=== PATIENT | male | born 1995 | race Caucasian/White ===

== ENCOUNTER 2017-10-26 14:10 | Emergency (ER) | payer MEDICARE, OTHER ==
[~2017-10-26] VITALS: Ht 175.3 cm; Wt 72.6 kg
--- OUTSIDE RECORDS SUMMARY | ~2017-10-26 | XMS | Clinical Summary ---
Demographics + + + | Address | [address] | | | [place] [address] | + + + | Home Phone | | + + + | Preferred Language | Unknown | + + + | Marital Status | Single | + + + | Anabaptist Affiliation | Unknown | + + + [...] Team Providers + +------+ + | Care Salon Coordinator Name | Role | Phone | + +------+ + PP | Unavailable | + +------+ + Source Comments LAVONNE is fully live on both [facility] Ambulatory and EpicCare InPatient.[facility] Allergies Not on File Current [...]
--- OUTSIDE RECORDS SUMMARY | ~2017-10-26 | XMS | Clinical Summary ---
Demographics + + + | Address | [address] | | | [place] [address] | + + + | Home Phone | | + + + | Preferred Language | Unknown | + + + | Marital Status | Single | + + + | Advent Affiliation | Unknown | + + + [...] Team Providers + +------+ + | Care Seo Professional Name | Role | Phone | + +------+ + PP | Unavailable | + +------+ + Source Comments LAVONNE is fully live on both [facility] Ambulatory and EpicCare InPatient.[facility] Allergies Not on File Current [...]
[~2017-10-26 14:10] MED LIST: TRIAMCINOLONE A15 GM TOP
[2017-10-26] MEDS ORDERED: NAPROSYN500 MG PO (14:31)
--- NOTE | 2017-10-27 00:07 | EKG ---
[facility] [address] [facility] [place] [address] Signed Normal sinus rhythm Nonspecific T wave abnormality Abnormal ECG No previous ECGs available Confirmed by MILO DAMICO MD ([id number]) on 10/27/2017 12:07:19 AM Electronically Signed By: MILO DAMICO MD 10/27/17 0007 PATIENT NAME: RICHARD FULLER HERBERT Electrocardiogram DATE OF : [birth year] PHYSICIAN: MILO DAMICO MD REPORT #: [id number] REPORT IS CONFIDENTIAL AND NOT TO BE RELEASED WITHOUT AUTHORIZATION
== END 2017-10-26 16:21 | disposition home or self-care (01) ==
LOC: ED 14:10
DX: M94.0 Chondrocostal junction syndrome [Tietze] (principal); Z88.0 Allergy status to penicillin
CPT/HCPCS: 71045; 93005; 93010; 96372; 99283; J1885

== ENCOUNTER 2017-10-28 08:44 | Emergency (ER) | payer MEDICARE, OTHER ==
[~2017-10-28] VITALS: Ht 175.3 cm; Wt 72.1 kg
--- OUTSIDE RECORDS SUMMARY | ~2017-10-28 | XMS | Clinical Summary ---
Demographics + + + | Address | [address] | | | [place] [address] | + + + | Home Phone | | + + + | Preferred Language | Unknown | + + + | Marital Status | Single | + + + | Yazidism Affiliation | Unknown | + + + [...] Team Providers + +------+ + | Care Cdl Bulk Driver Name | Role | Phone | + +------+ + PP | Unavailable | + +------+ + Source Comments LAVONNE is fully live on both Epic[facility] Ambulatory and EpicCare InPatient.[facility] Allergies Not on File Current Medications [...]
--- OUTSIDE RECORDS SUMMARY | ~2017-10-28 | XMS | Clinical Summary ---
Demographics + + + | Address | [address] | | | [place] [address] | + + + | Home Phone | | + + + | Preferred Language | Unknown | + + + | Marital Status | Single | + + + | Lutheran Affiliation | Unknown | + + + [...] Team Providers + +------+ + | Care Celebrity Manager Name | Role | Phone | + +------+ + PP | Unavailable | + +------+ + Source Comments LAVONNE is fully live on both Epic[facility] Ambulatory and EpicCare InPatient.[facility] Allergies Not on File [...]
[~2017-10-28 08:44] MED LIST changes: +NAPROSYN500 MG PO
[2017-10-28] MEDS ORDERED: VOLTAREN100 GM TOP (09:10)
== END 2017-10-28 09:50 | disposition home or self-care (01) ==
LOC: ED 08:44
DX: M62.830 Muscle spasm of back (principal); J45.909 Unspecified asthma, uncomplicated; Z88.0 Allergy status to penicillin; Z79.899 Other long term (current) drug therapy
CPT/HCPCS: 96372; 99283; J1885

== ENCOUNTER 2017-10-30 17:06 | Emergency (ER) | payer MEDICARE, OTHER ==
[~2017-10-30] VITALS: Ht 175.3 cm; Wt 72.1 kg
[~2017-10-30 17:06] MED LIST changes: +VOLTAREN100 GM TOP
--- OUTSIDE RECORDS SUMMARY | 2017-10-30 17:21 | XMS | Clinical Summary ---
Demographics + + + | Address | [address] | | | [place] [address] | + + + | Home Phone | | + + + | Preferred Language | Unknown | + + + | Marital Status | Single | + + + | Hoahaoism Affiliation | Unknown | + + + | Race | White | + + + | Ethnic Group | Not or | + + + Author + + + | Organization | Unknown | + + + | Address | Unknown | + + + | Phone | Unavailable | + + + Support +------+ + + + | Name | Relationship | Address | Phone | +------+ + + + ECON | [place] | | +------+ + + + Care Team Providers + +------+ + | Care Case Aide Name | Role | Phone | + +------+ + PP | Unavailable | + +------+ + Source Comments LAVONNE is fully live on both Epic[facility] Ambulatory and EpicCare InPatient.[facility] Allergies Not on File Current Medications Not on file Active Problems Not on file Social History + +-------+ +--------+------+ | Tobacco Use | Types | Packs/Day | Years | Date | | | | | Used | | + +-------+ +--------+------+ | Never Assessed | | | | | + +-------+ +--------+------+ + + + | Sex Assigned at | Date Recorded | | | | + + + | Not on file | | + + + Plan of Treatment + + + + + | Health Maintenance | Due Date | Last Done | Comments | + + + + + | INFLUENZA VACCINE | | | | | (FLU SHOT) | 7 | | | + + + + + Results Not on filefrom Last 3 Months"
--- OUTSIDE RECORDS SUMMARY | 2017-10-30 17:21 | XMS | Clinical Summary ---
Demographics + + + | Address | [address] | | | [place] [address] | + + + | Home Phone | | + + + | Preferred Language | Unknown | + + + | Marital Status | Single | + + + | Scientologist Affiliation | Unknown | + + + [...] Team Providers + +------+ + | Care Landscape Laborer Name | Role | Phone | + +------+ + PP | Unavailable | + +------+ + Source Comments LAVONNE is fully live on both Epic[facility] Ambulatory and EpicCare InPatient.[facility] Allergies Not on File Current Medications Not [...]
[2017-10-30] MEDS ORDERED: ZITHROMAX250 MG PO (18:06)
== END 2017-10-30 18:15 | disposition home or self-care (01) ==
LOC: ED 17:06
DX: J02.9 Acute pharyngitis, unspecified (principal); Z91.038 Other insect allergy status; Z91.030 Bee allergy status; Z88.0 Allergy status to penicillin; Z79.899 Other long term (current) drug therapy
CPT/HCPCS: 87081; 87880; 99283

== ENCOUNTER → 2018-01-27 | Emergency (ER) | payer MEDICARE, OTHER ==
[~2018-01-27] VITALS: Ht 175.3 cm; Wt 79.4 kg
[~2018-01-27] MED LIST changes: +ZITHROMAX250 MG PO
== END ==
LOC: ED 21:14
DX: S46.812A Strain of other muscles, fascia and tendons at shoulder and upper arm level, left arm, initial encounter (principal); X58.XXXA Exposure to other specified factors, initial encounter; Z91.030 Bee allergy status; Z88.0 Allergy status to penicillin
CPT/HCPCS: 73080; 99283

== ENCOUNTER 2018-05-25 18:10 | Emergency (ER) | payer MEDICARE, OTHER ==
[~2018-05-25] VITALS: Ht 175.3 cm; Wt 79.4 kg
--- OUTSIDE RECORDS SUMMARY | ~2018-05-25 | XMS | Clinical Summary ---
Demographics + + + | Address | [address] | | | [place] [address] | + + + | Home Phone [...] | + + + + + | CHANNING FULLER | ECON | [place] | | + + + + + Care Team Providers + +------+ + | Care Medical Records Auditor Name | Role | Phone | + +------+ + PP | Unavailable | + +------+ + Source Comments LAVONNE is fully live on both [facility] Ambulatory and [facility] InPatient.[facility] Allergies Not on File Current [...] | | | | (FLU SHOT) | 8 | | | + + + + + Results Not on filefrom Last 3 Months"
--- OUTSIDE RECORDS SUMMARY | ~2018-05-25 | XMS | Clinical Summary ---
Demographics + + + | Address | [address] | | | [place] [address] | + + + | Home Phone | | + + + | Preferred Language | Unknown | + + + | Marital Status | Single | + + + | Uatsdin Affiliation | Unknown | + + + [...] Team Providers + +------+ + | Care Jet Ski Mechanic Name | Role | Phone | + +------+ + PP | Unavailable | + +------+ + Source Comments LAVONNE is fully live on both [facility] Ambulatory and [facility] InPatient.[facility] Allergies Not on File Current [...]
--- OUTSIDE RECORDS SUMMARY | 2018-05-25 18:14 | XMS ---
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 Security Bulldozer Mechanic Events No recent Security Events currently on file CRITERIA MET - [facility] - 2 Visits in 30 Days CARE PROVIDERS Dr Butt Primary Care Current PHONE: [phone] [place] has no Care Guidelines for this patient. E.DAliya VISIT COUNT (12 MO.) [address] [place] [address] TOTAL 6 NOTE: Visits indicate total known visits. ED/UCC VISIT TRACKING (12 MO.) 05/25/2018 18:11 [facility] [place] TYPE: Emergency COMPLAINT: - HEAD PRESSURE/NOSE BLEED 05/24/2018 22:37 [facility] [place] TYPE: Emergency COMPLAINT: - NOSE BLEEDS 2018 21:14 [facility] [place] TYPE: Emergency COMPLAINT: - LT ELBOW PAIN DIAGNOSES: - Exposure to other specified factors, initial encounter - Strain of other muscles, fascia and tendons at shoulder and upper arm level, left arm, initial encounter - Bee allergy status - Allergy status to penicillin 10/30/2017 17:07 [facility] [place] TYPE: Emergency COMPLAINT: - SORE THROAT/PROBLEMS SWALLOWING DIAGNOSES: - Bee allergy status - Other insect allergy status - Allergy status to penicillin - Other termite treater (current) drug therapy - Acute pharyngitis, unspecified 10/28/2017 08:46 [facility] [place] TYPE: Emergency COMPLAINT: - HEAD PAIN DIAGNOSES: - Muscle spasm of back - Allergy status to penicillin - Headache - Other termite treater (current) drug therapy - Unspecified asthma, uncomplicated 10/26/2017 14:10 [facility] [place] TYPE: Emergency COMPLAINT: - CHEST PAIN DIAGNOSES: - Palpitations - Chondrocostal junction syndrome [Tietze] - Allergy status to penicillin INPATIENT VISIT TRACKING (12 MO.) No inpatient visits to display in this time frame [email or web address]
== END 2018-05-25 21:19 | disposition home or self-care (01) ==
LOC: ED 18:10
DX: R51 Headache (principal); R04.0 Epistaxis; Z91.038 Other insect allergy status; Z91.030 Bee allergy status; Z88.0 Allergy status to penicillin
CPT/HCPCS: 70450; 80053; 85025; 85610; 85730; 99284

== ENCOUNTER 2018-09-26 13:08 | Emergency (ER) | payer MEDICARE, OTHER ==
[~2018-09-26] VITALS: Ht 175.3 cm; Wt 79.8 kg
[2018-09-26] MEDS ORDERED: IBUPROFEN600 MG PO (16:19)
[2018-09-26] MEDS ORDERED: NORCO 5-325 TA1 EACH PO (16:19)
== END 2018-09-26 16:32 | disposition home or self-care (01) ==
LOC: ED 13:08
DX: S36.892A Contusion of other intra-abdominal organs, initial encounter (principal); Z91.038 Other insect allergy status; Z88.0 Allergy status to penicillin; X58.XXXA Exposure to other specified factors, initial encounter; Y93.39 Activity, other involving climbing, rappelling and jumping off
CPT/HCPCS: 74177; 80053; 81001; 85025; 99284-25; J1885; Q9967

== ENCOUNTER 2018-10-27 19:11 | Emergency (ER) | payer MEDICARE, OTHER ==
[~2018-10-27] VITALS: Ht 175.3 cm; Wt 79.8 kg
[~2018-10-27 19:11] MED LIST changes: +IBUPROFEN600 MG PO; +NORCO 5-325 TA1 EACH PO
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
== END 2018-10-27 19:49 | disposition home or self-care (01) ==
LOC: ED 19:11
DX: S91.111A Laceration without foreign body of right great toe without damage to nail, initial encounter (principal); W22.8XXA Striking against or struck by other objects, initial encounter; Z91.030 Bee allergy status; Z88.0 Allergy status to penicillin
CPT/HCPCS: 90471; 90715; 99282-25

== ENCOUNTER 2018-10-28 19:21 | Emergency (ER) | payer MEDICARE, OTHER ==
[~2018-10-28] VITALS: Ht 175.3 cm; Wt 80.3 kg
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
== END 2018-10-28 22:48 | disposition home or self-care (01) ==
LOC: ED 19:21
PROC: 2W3DX1Z Immobilization of Left Lower Arm using Splint (ICD-10-PCS; principal; 2018-10-28)
DX: S63.502A Unspecified sprain of left wrist, initial encounter (principal); Z91.038 Other insect allergy status; Z88.0 Allergy status to penicillin; W22.03XA Walked into furniture, initial encounter
CPT/HCPCS: 29125; 73110; 73130; 99283-25

== ENCOUNTER 2019-05-23 17:36 | Emergency (ER) | payer MEDICARE, OTHER ==
[~2019-05-23] VITALS: Ht 175.3 cm; Wt 80.3 kg
--- OUTSIDE RECORDS SUMMARY | 2019-05-23 17:38 | XMS ---
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 Security Showroom Sales Consultant Events No recent Security Events currently on file CRITERIA MET - [facility] - Has Care Guidelines [facility] MARIA TERESA [employer] PHONE: [phone] Dr Butt Primary Care Current PHONE: [phone] [place] has no Care Guidelines for this patient. Care History Medical/Surgical 05/26/2018 [facility] tried to contact patient. Patient phone does not have a voicemail set up. - Patient was last seen by PCP Dr Butt on November 30. - Please refer patient to PCP office for non emergent medical care. E.D. VISIT COUNT (12 MO.) 8 [facility] TOTAL 8 NOTE: Visits indicate total known visits. ED/UCC VISIT TRACKING (12 MO.) 05/23/2019 17:37 [facility] [place] TYPE: Emergency COMPLAINT: - NOSE BLEEDS 10/28/2018 19:22 [facility] [place] TYPE: Emergency COMPLAINT: - LEFT WRIST INJURY DIAGNOSES: - Allergy status to penicillin - Unspecified sprain of left wrist, initial encounter - Other insect allergy status - Walked into furniture, initial encounter - Pain in left wrist 10/27/2018 19:[address] [facility] [place] TYPE: Emergency COMPLAINT: - R BIG TOE SORE/INFECTION DIAGNOSES: - Bee allergy status - Allergy status to penicillin - Laceration without foreign body of right great toe without damage to nail, initial encounter - Striking against or struck by other objects, initial encounter 09/26/2018 13:09 [facility] Gilbertnick McnallyAliya [place] TYPE: Emergency COMPLAINT: - ABD PAIN DIAGNOSES: - Other insect allergy status - Contusion of other intra-abdominal organs, initial encounter - Exposure to other specified factors, initial encounter - Left lower quadrant pain - Allergy status to penicillin - Activity, other involving climbing, rappelling and jumping off 06/21/2018 21:16 [facility] Gilbertnick McnallyAliya [place] TYPE: [...] Scratched by cat, initial encounter 05/25/2018 18:11 [facility] [place] TYPE: Emergency COMPLAINT: - HEAD PRESSURE/NOSE BLEED DIAGNOSES: - Headache - Other insect allergy status - Bee allergy status - Allergy status to penicillin - Epistaxis 05/24/2018 22:37 [facility] [place] TYPE: Emergency COMPLAINT: - NOSE BLEEDS DIAGNOSES: - Other insect allergy status - Bee allergy status - Epistaxis - Allergy status to penicillin INPATIENT VISIT TRACKING (12 MO.) No inpatient visits to display in this time frame [id number]
== END 2019-05-23 21:52 | disposition home or self-care (01) ==
LOC: ED 17:36
PROC: 093K7ZZ Control Bleeding in Nasal Mucosa and Soft Tissue, Via Natural or Artificial Opening (ICD-10-PCS; principal; 2019-05-23)
DX: R04.0 Epistaxis (principal); Z91.030 Bee allergy status; Z88.0 Allergy status to penicillin
CPT/HCPCS: 30901; 99283-25

== ENCOUNTER 2019-05-26 14:04 | Emergency (ER) | payer MEDICARE, OTHER ==
[~2019-05-26] VITALS: Ht 175.3 cm; Wt 80.3 kg
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
== END 2019-05-26 15:45 | disposition home or self-care (01) ==
LOC: ED 14:04
DX: R04.0 Epistaxis (principal); Z88.0 Allergy status to penicillin; Z91.030 Bee allergy status
CPT/HCPCS: 99283

== ENCOUNTER 2019-06-02 02:24 | Emergency (ER) | payer MEDICARE, OTHER ==
[~2019-06-02] VITALS: Ht 175.3 cm; Wt 80.3 kg
--- OUTSIDE RECORDS SUMMARY | 2019-06-02 02:30 | XMS ---
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 Security Double Cut Sawyer Events No recent Security Events currently on file CRITERIA MET - [facility] - Has Care Guidelines - [facility] - 2 Visits in 30 Days [facility]Eliseo [place] PHONE: [phone] Dr Butt Primary Care Current PHONE: [phone] [place] has no Care Guidelines for this patient. Care History Medical/Surgical 05/26/2018 [facility] tried to contact patient. Patient phone does not have a voicemail set up. - Patient was last seen by PCP Dr Butt on November 30. - Please refer patient to PCP office for non emergent medical care. E.D. VISIT COUNT (12 MO.) 8 [facility] TOTAL 8 NOTE: Visits indicate total known visits. ED/UCC VISIT TRACKING (12 MO.) 06/02/2019 02:24 [facility] [place] TYPE: Emergency COMPLAINT: - FLANK PAIN 05/26/2019 14:04 [facility] [place] TYPE: Emergency COMPLAINT: - NOSE BLEEDS DIAGNOSES: - Allergy status to penicillin - Bee allergy status - Epistaxis 05/23/2019 17:37 [facility] [place] TYPE: [...] by other objects, initial encounter 09/26/2018 13:09 [facility] [place] TYPE: Emergency COMPLAINT: - ABD PAIN [...] visits to display in this time frame [email or web address]
[2019-06-02] MEDS ORDERED: CYCLOBENZAPRINE10 MG PO (03:25)
[2019-06-02] MEDS ORDERED: NAPROXEN500 MG PO (03:25)
== END 2019-06-02 03:37 | disposition home or self-care (01) ==
LOC: ED 02:24
DX: R10.9 Unspecified abdominal pain (principal); Z88.0 Allergy status to penicillin; Z91.030 Bee allergy status
CPT/HCPCS: 81001; 99284

== ENCOUNTER 2019-07-18 04:19 | Emergency (ER) | payer MEDICARE, OTHER ==
[~2019-07-18] VITALS: Ht 175.3 cm; Wt 80.3 kg
--- OUTSIDE RECORDS SUMMARY | ~2019-07-18 | XMS | Clinical Summary ---
Demographics + + + | Address | [address] | | | [place] [address] | + + + | Home Phone | | + + + | Preferred Language | Unknown | + + + | Marital Status | Single | + + + | Confucianism Affiliation | Unknown | + + + [...] + + + + + | Madhuri López | SAD[place] | [place] | | + + + + + Care Team Providers + +------+ + | Care Infectious Diseases Physician Name | Role | Phone | + +------+ + PCP | Unavailable | + +------+ + Source Comments LAVONNE is fully live on both [facility] Ambulatory and [facility] InPatient.[facility] Allergies Not on File Medications Not on file Active Problems Not [...] recent travel history available. | + + Last Filed Vital Signs Not on file Plan of Treatment + + + + + | Health Maintenance | Due Date | Last Done | Comments | + + + + + | Influenza (Flu) | | | | | vaccination (#1) | 9 | | | + + + + + | Pneumococcal | Aged Out | | No longer eligible | | vaccination | | | based on patient's | | | | | age to complete this | | | | | topic | + + + + + Results Not on filefrom Last 3 Months"
--- OUTSIDE RECORDS SUMMARY | ~2019-07-18 | XMS | Clinical Summary ---
Demographics + + + | Address | [address] | | | [place] [address] | + + + | Home Phone | | + + + | Preferred Language | Unknown | + + + | Marital Status | Single | + + + | Episcopalian Affiliation | Unknown | + + + [...] Team Providers + +------+ + | Care Air Brakes Inspector Name | Role | Phone | + +------+ + PCP | Unavailable | + +------+ + Source Comments LAVONNE is fully live on both [facility] and [facility] InPatient.[facility] Allergies Not on File Medications Not [...]
--- OUTSIDE RECORDS SUMMARY | ~2019-07-18 | XMS | Encounter Summary ---
Demographics + + + | Address | [address] | | | [place] [address] | + + + | Home Phone | | + + + | Preferred Language | Unknown | + + + | Marital Status | Single | + + + | Evangelical Affiliation | Unknown | + + + [...] Team Providers + +------+ + | Care Business Manager College Or University Name | Role | Phone | + [...] as of this encounter Progress Notes Interface, Offset Press Operator Apprentice In - 08/05/2006 1:01 AM [place] [facility]als [facility] Clinics [facility] [address] [place], [place] [address] or January 29, 2000 Jonah Del Rio [address] [place] [address] RE: RICHARD FULLER MR #: [id number] Dear Dr. Del Rio: Thank you for the referral of your patient Richard Fuller to the Pediatric Dermatology Clinic at [facility]. He was seen by Dr. Carolyn Mckeon [...] patient to the Pediatric Dermatology Clinic at [facility]. If you have any questions or concerns, please do not hesitate to contact us at [phone]. Sincerely, Livia Prince M.D. Resident, Dermatology Carolyn Mckeon M.D. Pulling Machine Operator, Pediatrics and Dermatology NILAY / [id number] / [id number] / [id number] / [id number] cc: Yann Jansen M.D. [address] [place] [address] [id number] signed by Interface, Offset Press Operator Apprentice In at 08/05/2006 1:01 AM PSTdocume nted in this encounter Plan of Treatment Not on filedocumented as of this encounter Visit Diagnoses Not on filedocumented in this encounter"
--- OUTSIDE RECORDS SUMMARY | ~2019-07-18 | XMS | Encounter Summary ---
Demographics + + + | Address | [address] | | | [place] [address] | + + + | Home Phone [...] Team Providers + +------+ + | Care Pillowcase Sewer Name | Role | Phone | + [...] as of this encounter Progress Notes Interface, Circus Artist In - 08/05/2006 1:01 AM [place] [facility] Hospitals and Clinics [facility] [address] [place], [place] [address] or January 29, 2000 Jonah Del Rio [address] [place] [address] RE: RICHARD FULLER MR #: [id number] Dear Dr. Del Rio: Thank you for the referral of your patient Richard Fuller to the Pediatric Dermatology Clinic at [facility]. He was seen by Dr. Carolyn Mckeon [...] patient to the Pediatric Dermatology Clinic at [facility]. If you have any questions or concerns, please do not hesitate to contact us at [phone]. Sincerely, Livia Prince M.D. Resident, Dermatology Carolyn Mckeon M.D. Director On Air, Pediatrics and Dermatology NILAY / [id number] / [id number] / [id number] / [id number] cc: Yann Jansen M.D. [address] [place] [address] [id number] signed by Interface, Circus Artist In at 08/05/2006 1:01 AM PSTdocume nted in this encounter Plan of Treatment Not on filedocumented as of this encounter Visit Diagnoses Not on filedocumented in this encounter"
[~2019-07-18 04:19] MED LIST changes: +CYCLOBENZAPRINE10 MG PO; +NAPROXEN500 MG PO
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
--- NOTE | 2019-07-18 17:40 | EKG ---
[facility] [address] [facility] [place], [place] [address] Signed Normal sinus rhythm Normal ECG When compared with ECG of 26-OCT-2017 14:19, No significant change was found Confirmed by ZAY KAM DO ([id number]) on 07/18/2019 5:39:42 PM Electronically Signed By: ZAY KAM DO 07/18/19 1740 PATIENT NAME: SHANE FULLERDali GODINEZ Electrocardiogram DATE OF : [birth year] PHYSICIAN: ZAY KAM DO REPORT #: [id number] REPORT IS CONFIDENTIAL AND NOT TO BE RELEASED WITHOUT AUTHORIZATION
== END 2019-07-18 05:30 | disposition home or self-care (01) ==
LOC: ED 04:19
DX: R07.89 Other chest pain (principal); Z91.030 Bee allergy status; Z88.0 Allergy status to penicillin
CPT/HCPCS: 71045; 80053; 83735; 84484; 85025; 93005; 93010; 99285-25

== ENCOUNTER 2019-08-09 23:26 | Emergency (ER) | payer MEDICARE, OTHER ==
[~2019-08-09] VITALS: Ht 175.3 cm; Wt 80.3 kg
--- OUTSIDE RECORDS SUMMARY | ~2019-08-09 | XMS | Encounter Summary ---
Demographics + + + | Address | [address] | | | [place] [address] | + + + | Home Phone | | + + + | Preferred Language | Unknown | + + + | Marital Status | Single | + + + | Orthodoxy Affiliation | Unknown | + + + | Race | White | + + + | Ethnic Group | Not or | + + + Author + + + | Organization | Unknown | + + + | Address | Unknown | + + + | Phone | Unavailable | + + + Support + + + + + | Name | Relationship | Address | Phone | + + + + + | Madhuri Fuller | SADIE | [place] | | + + + + + Care Team Providers + +------+ + | Care Vocal Music Teacher Name | Role | Phone | + +------+ + PCP | Unavailable | + +------+ + Encounter Details +--------+ + + + + | Date | Type | Department | Care Team | Description | +--------+ + + + + | 01/28/ | Transcribed | | Dictation, Other | Transcribed | | 2000 | | | | | +--------+ + + + + Social History + +-------+ +--------+------+ | Tobacco [...] on file | | + + + + + + + | Job Start Date | Occupation | Industry | + + + + | Not on file | Not on file | Not on file | + + + + + + + + | Travel History | Travel Start | Travel End | + + + + + + | No recent travel history available. | + + documented as of this encounter Progress Notes Interface, Director Design In - 08/05/2006 1:01 AM [place]ARR[place] [facility] Hospitals and Clinics [facility] [address] [place], [place] [address] or January 29, 2000 Jonah Del Rio [address] [place] [address] RE: RICHARD FULLER MR #: [id number] Dear Dr. Del Rio: Thank you for the referral of your patient Richard Fuller to the Pediatric Dermatology Clinic at [facility]. He was seen by Dr. Carolyn Mckeon and myself on January 29, 2000. Richard is 5-year-old boy with a history of intermittent episodes of high fever, emesis, and flushing. These have occurred monthly since July 1999. He has had a negative Strep throat culture as well as blood cultures that were negative. He has no desquamation of his hands or feet. The rash has never been palpable, only deep red in color involving his face, upper chest, and extremities. He has received numerous courses of antibiotics with improvement in his course. He is otherwise healthy and does have recurrent otitis media. He currently takes a multivitamin. HE HAS ALLERGIES TO AMOXICILLIN AND CEPHALEXIN. He has no family history of psoriasis or eczema. On physical examination today, Richard's skin examination was completely normal. He had no evidence of any dermatitis. He had no lymphadenopathy. There was no hepatosplenomegaly. It is difficult at this point in time to determine the etiology of Richard's recurrent fevers, emesis, and flushing. Given the cyclic nature of these symptoms, we felt that it might be appropriate to refer the patient to Infectious Disease Clinic for further evaluation. We would be happy to see him back if his rash does return, and this maybetter help us to classify the rash at that time. Thank you once again for the referral of your patient to the Pediatric Dermatology Clinic at [facility]. If you have any questions or concerns, please do not hesitate to contact us at [phone]. Sincerely, Livia Prince M.D. Resident, Dermatology Carolyn Mckeon M.D. Pediatric Medical Assistant, Pediatrics and Dermatology NILAY / [id number] / [id number] / [id number] / [id number] cc: Yann Jansen M.D. [address] [place] [address] [id number] signed by Interface, Director Design In at 08/05/2006 1:01 AM PSTdocume nted in this encounter Plan of Treatment Not on filedocumented as of this encounter Visit Diagnoses Not on filedocumented in this encounter"
--- OUTSIDE RECORDS SUMMARY | ~2019-08-09 | XMS | Clinical Summary ---
Demographics + + + | Address | [address] | | | [place] [address] | + + + | Home Phone | | + + + | Preferred Language | Unknown | + + + | Marital Status | Single | + + + | Zoroastrian Affiliation | Unknown | + + + [...] Team Providers + +------+ + | Care Waste Salvager Name | Role | Phone | + +------+ + PCP | Unavailable | + +------+ + Source Comments LAVONNE is fully live on both [facility] Ambulatory and [facility] InPatient.[facility] Allergies Not on File Medications Not on [...]
--- OUTSIDE RECORDS SUMMARY | ~2019-08-09 | XMS | Encounter Summary ---
Demographics + + + | Address | [address] | | | [place] [address] | + + + | Home Phone | | + + + | Preferred Language | Unknown | + + + | Marital Status | Single | + + + | Religion Affiliation | Unknown | + + + [...] Team Providers + +------+ + | Care Collision Technician Name | Role | Phone | + [...] as of this encounter Progress Notes Interface, Pool Player In - 08/05/2006 1:01 AM [place] [facility] Hospitals and Clinics [facility] [address] [place], [place] [address] or January 29, 2000 Jonah Del Rio [address] [place] [address] RE: RICHARD FULLER MR #: [id number] Dear Dr. Del Rio: Thank you for [...] patient to the Pediatric Dermatology Clinic at [facility]. If you have any questions or concerns, please do not hesitate to contact us at [phone]. Sincerely, Livia Prinec M.D. Resident, Dermatology Carolyn Mckeon M.D. Bank Cashier, Pediatrics and Dermatology NILAY / [id number] / [id number] / [id number] / [id number] cc: Yann Jansen M.D. [address] [place] [address] [id number] signed by Interface, Pool Player In at 08/05/2006 1:01 AM PSTdocume nted in this encounter Plan of Treatment Not on filedocumented as of this encounter Visit Diagnoses Not on filedocumented in this encounter"
--- OUTSIDE RECORDS SUMMARY | ~2019-08-09 | XMS | Clinical Summary ---
Demographics + + + | Address | [address] | | | [place] [address] | + + + | Home Phone [...] Team Providers + +------+ + | Care Sampler Tester Name | Role | Phone | + +------+ + PCP | Unavailable | + +------+ + Source Comments LAVONNE is fully live on both [facility] Ambulatory and [facility] InPatient.[facility] Allergies Not on File Medications Not on [...]
--- OUTSIDE RECORDS SUMMARY | 2019-08-09 23:28 | XMS ---
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 Care History Medical/Surgical 05/26/2018 [facility] tried to contact patient. Patient phone does not have a voicemail set up. - Patient was last seen by PCP Dr Butt on November 30. - Please refer patient to PCP office for non emergent medical care. E.D. VISIT COUNT (12 MO.) [address] [facility] TOTAL 8 NOTE: Visits indicate total known visits. ED/UCC VISIT TRACKING (12 MO.) 08/09/2019 23:27 MARY ANNE Jiang [place] TYPE: Emergency COMPLAINT: - SORE THROAT 07/18/2019 04:19 MARY ANNE Jiang [place] TYPE: Emergency COMPLAINT: - CHEST PAIN DIAGNOSES: - Chest pain, unspecified - Other chest pain - Bee allergy status - Allergy status to penicillin 06/02/2019 02:24 MARY ANNE Jiang [place] TYPE: [...] visits to display in this time frame [id number]
== END 2019-08-09 23:58 | disposition home or self-care (01) ==
LOC: ED 23:26
DX: J06.9 Acute upper respiratory infection, unspecified (principal); Z91.030 Bee allergy status; Z88.0 Allergy status to penicillin
CPT/HCPCS: 99283

== ENCOUNTER 2019-08-23 18:18 | Emergency (ER) | payer MEDICARE, OTHER ==
[~2019-08-23] VITALS: Ht 175.3 cm; Wt 83.4 kg
--- OUTSIDE RECORDS SUMMARY | ~2019-08-23 | XMS | Encounter Summary ---
Demographics + + + | Address | [address] | | | [place] [address] | + + + | Home Phone | | + + + | Preferred Language | Unknown | + + + | Marital Status | Single | + + + | Yazidi Affiliation | Unknown | + + + [...] Team Providers + +------+ + | Care Emergency Services Professional Name | Role | Phone | + [...] as of this encounter Progress Notes Interface, Dry Placer Machine Operator In - 08/05/2006 1:01 AM [place] [facility] Hospitals and Clinics [facility] [address] [place], [place] [address] or January 29, 2000 Jonah Del Rio [address] [place] [address] RE: RICHARD FULLER MR #: [id number] Dear Dr. Del Rio: Thank you for the referral of your patient Richard Fuller to the Pediatric Dermatology Clinic at [facility]. He was seen by Dr. Carolyn Mckeon [...] patient to the Pediatric Dermatology Clinic at [facility]. If you have any questions or concerns, please do not hesitate to contact us at [phone]. Sincerely, Livia Prince M.D. Resident, Dermatology Carolyn Mckeon M.D. Integrated Campaign Manager, Pediatrics and Dermatology NILAY / [id number] / [id number] / [id number] / [id number] cc: Yann Jansen M.D. [address] [place] [address] [id number] signed by Interface, Dry Placer Machine Operator In at 08/05/2006 1:01 AM PSTdocume nted in this encounter Plan of Treatment Not on filedocumented as of this encounter Visit Diagnoses Not on filedocumented in this encounter"
--- OUTSIDE RECORDS SUMMARY | ~2019-08-23 | XMS | Encounter Summary ---
Demographics + + + | Address | [address] | | | [place] [address] | + + + | Home Phone | | + + + | Preferred Language | Unknown | + + + | Marital Status | Single | + + + | Zoroastrianism Affiliation | Unknown | + + + [...] Team Providers + +------+ + | Care Solar Panel Installer Name | Role | Phone | + [...] as of this encounter Progress Notes Interface, Rubber Mill Operator In - 08/05/2006 1:01 AM [place] [facility] Hospitals and Clinics [facility] [address] [place], [place] [address] or January 29, 2000 Jonah Del Rio [address] [place] [address] RE: RICHARD FULLER MR #: [id number] Dear Dr. Del Rio: Thank you for the referral of your patient Richard Fuller to the Pediatric Dermatology Clinic at [facility]. He was seen by Dr. [...] patient to the Pediatric Dermatology Clinic at [facility]. If you have any questions or concerns, please do not hesitate to contact us at [phone]. Sincerely, Livia Prince M.D. Resident, Dermatology Carolyn Mckeon M.D. Agricultural Produce Commission Agent, Pediatrics and Dermatology NILAY / [id number] / [id number] / [id number] / [id number] cc: Yann Jansen M.D. [address] [place] [address] [id number] signed by Interface, Rubber Mill Operator In at 08/05/2006 1:01 AM PSTdocume nted in this encounter Plan of Treatment Not on filedocumented as of this encounter Visit Diagnoses Not on filedocumented in this encounter"
--- OUTSIDE RECORDS SUMMARY | ~2019-08-23 | XMS | Clinical Summary ---
Demographics + + + | Address | [address] | | | [place] [address] | + + + | Home Phone | | + + + | Preferred Language | Unknown | + + + | Marital Status | Single | + + + | Buddhist Affiliation | Unknown | + + + [...] Team Providers + +------+ + | Care Patient Support Assistant Name | Role | Phone | + +------+ + PCP | Unavailable | + +------+ + Source Comments LAVONNE is fully live on both [facility] Ambulatory and [facility] InPatient.[facility] Allergies Not on File Medications Not [...]
--- OUTSIDE RECORDS SUMMARY | ~2019-08-23 | XMS | Clinical Summary ---
Demographics + + + | Address | [address] | | | [place] [address] | + + + | Home Phone [...] Team Providers + +------+ + | Care Clerical Investigator Name | Role | Phone | + +------+ + PCP | Unavailable | + +------+ + Source Comments LAVONNE is fully live on both [facility] Ambulatory and [facility] InPatient.[facility] Allergies Not on File Medications Not [...]
--- OUTSIDE RECORDS SUMMARY | 2019-08-23 18:20 | XMS ---
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 - Has Care Guidelines - [facility] - 2 Visits in 30 Days CARE PROVIDERS BIMAL [facility] 05/26/2018-Eliseo MOREL PHONE: [phone] Dr Wallis Primary Care Current PHONE: [phone] [place] has no Care Guidelines for this patient. Care History Medical/Surgical 08/10/2019 [facility] - [facility] CALLED PATIENT PCP OFFICE-DR WALLIS- THEY HAVE NOT SEEN PATIENT SINCE JUNE AND NO FOLLOW UP APTS SCHEDULED. - DR WALLIS HAS NOT RECEIVED ER VISIT NOTES -W REQUESTED MEDICAL RECORDS TO SEND ALL ER NOTES FROM [facility] TO [phone] FAX NUMBER. - BEBE FROM MEDICAL RECORDS STATED SHE WOULD SEND ALL RECORDS AND CONTACT DR WALLIS OFFICE TO MAKE SURE RECORDS ARE RECEIVED. - PROVIDER WILL REVIEW ALL RECORDS AND CONTACT PATIENT. 05/26/2018 [facility] - [facility] tried to contact patient. Patient phone does not have a voicemail set up. - Patient was last seen by PCP Dr Wallis on November 30. - Please refer patient to PCP office for non emergent medical care. Eddie VISIT COUNT (12 MO.) 9 MARY ANNE Hannah TOTAL 9 NOTE: Visits indicate total known visits. ED/UCC VISIT TRACKING (12 MO.) 08/23/2019 18:19 MARY ANNE Jiang [place] TYPE: Emergency COMPLAINT: - SOB 08/09/2019 23:27 MARY ANNE Aripeka HAliya Feliciano [place] TYPE: Emergency COMPLAINT: - COUGH DIAGNOSES: - Acute upper respiratory infection, unspecified - Allergy status to penicillin - Cough - Bee allergy status 07/18/2019 04:19 MARY ANNE Jiang [place] TYPE: Emergency COMPLAINT: - CHEST PAIN DIAGNOSES: - Chest pain, unspecified - Other chest pain - Bee allergy status - Allergy status to penicillin 06/02/2019 02:24 MARY ANNE [place] Juli Feliciano [place] TYPE: Emergency COMPLAINT: - FLANK PAIN [...] visits to display in this time frame [id number]
[2019-08-23] MEDS ORDERED: PROTONIX40 MG PO (20:18)
== END 2019-08-23 20:31 | disposition home or self-care (01) ==
LOC: ED 18:18
DX: R10.10 Upper abdominal pain, unspecified (principal); Z91.030 Bee allergy status; Z88.0 Allergy status to penicillin
CPT/HCPCS: 71046; 80053; 81001; 83690; 85025; 85379; 99284-25

== ENCOUNTER 2019-09-25 01:02 | Emergency (ER) | payer MEDICARE, OTHER ==
[~2019-09-25] VITALS: Ht 175.3 cm; Wt 83.4 kg
--- OUTSIDE RECORDS SUMMARY | ~2019-09-25 | XMS | Clinical Summary ---
Demographics + + + | Address | [address] | | | [place] [address] | + + + | Home Phone | | + + + | Preferred Language | Unknown | + + + | Marital Status | Single | + + + | Baptist Affiliation | Unknown | + + + [...] Team Providers + +------+ + | Care Fret Saw Operator Name | Role | Phone | + +------+ + PCP | Unavailable | + +------+ + Source Comments LAVONNE is fully live on both [facility] Ambulatory and [facility] InPatient.[facility] Allergies Not on File Medications [...]
--- OUTSIDE RECORDS SUMMARY | ~2019-09-25 | XMS | Clinical Summary ---
Demographics + + + | Address | [address] | | | [place] [address] | + + + | Home Phone | | + + + | Preferred Language | Unknown | + + + | Marital Status | Single | + + + | Faith Affiliation | Unknown | + + + [...] Team Providers + +------+ + | Care Uptwist Spinner Name | Role | Phone | + +------+ + PCP | Unavailable | + +------+ + Source Comments LAVONNE is fully live on both [facility] Ambulatory and [facility] InPatient.[facility] Allergies Not on File Medications Not [...]
--- OUTSIDE RECORDS SUMMARY | ~2019-09-25 | XMS | Encounter Summary ---
Demographics + + + | Address | [address] | | | [place] [address] | + + + | Home Phone [...] Team Providers + +------+ + | Care Larriman Helper Name | Role | Phone | + [...] as of this encounter Progress Notes Interface, Nurse Researcher In - 08/05/2006 1:[address] [place] [facility] Hospitals and Clinics [facility] [address] [place], [place] [address] or January 29, 2000 Jonah Del Rio [address] [place] [address] RE: RICHARD FULLER MR #: [id number] Dear Dr. Del Rio: Thank you for the referral of your patient Richard Fuller to the Pediatric Dermatology Clinic at [facility]. He was seen by Dr. Carolyn [...] patient to the Pediatric Dermatology Clinic at [facility]. If you have any questions or concerns, please do not hesitate to contact us at [phone]. Sincerely, Livia Prince M.D. Resident, Dermatology Carolyn Mckeon M.D. Press Hand Supervisor, Pediatrics and Dermatology NILAY / [id number] / [id number] / [id number] / [id number] cc: Yann Jansen M.D. [address] [place] [address] [id number] signed by Interface, Nurse Researcher In at 08/05/2006 1:01 AM PSTdocume nted in this encounter Plan of Treatment Not on filedocumented as of this encounter Visit Diagnoses Not on filedocumented in this encounter"
--- OUTSIDE RECORDS SUMMARY | ~2019-09-25 | XMS | Encounter Summary ---
Demographics + + + | Address | [address] | | | [place] [address] | + + + | Home Phone | | + + + | Preferred Language | Unknown | + + + | Marital Status | Single | + + + | Yarsani Affiliation | Unknown | + + + [...] Team Providers + +------+ + | Care Injection Molding Engineer Name | Role | Phone | + [...] as of this encounter Progress Notes Interface, Principal Data Architect In - 08/05/2006 1:01 AM [place] [facility] Hospitals and Clinics [facility] [address] [place], [place] [address] or January 29, 2000 Jonah Del Rio [address] [place] [address] RE: RICHARD FULLER MR #: [id number] Dear Dr. Del Rio: Thank you for the referral of your patient Richard Fuller to the Pediatric Dermatology Clinic at [facility]. He was seen by Dr. [...] patient to the Pediatric Dermatology Clinic at [facility]. If you have any questions or concerns, please do not hesitate to contact us at [phone]. Sincerely, Livia Prince M.D. Resident, Dermatology Carolyn Mckeon M.D. Manager Of Compliance, Pediatrics and Dermatology NILAY / [id number] / [id number] / [id number] / [id number] cc: Yann Jansen M.D. [address] [place] [address] [id number] signed by Interface, Principal Data Architect In at 08/05/2006 1:01 AM PSTdocume nted in this encounter Plan of Treatment Not on filedocumented as of this encounter Visit Diagnoses Not on filedocumented in this encounter"
[~2019-09-25 01:02] MED LIST changes: +PROTONIX40 MG PO
--- OUTSIDE RECORDS SUMMARY | 2019-09-25 01:06 | XMS ---
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 Care History Medical/Surgical 08/10/2019 [facility] CALLED PATIENT PCP OFFICE-DR WALLIS- THEY HAVE NOT SEEN PATIENT SINCE JUNE AND NO FOLLOW UP APTS SCHEDULED. - DR WALLIS HAS NOT RECEIVED ER VISIT NOTES -W REQUESTED MEDICAL RECORDS TO SEND ALL ER NOTES FROM [facility] TO [phone] FAX NUMBER. - BEBE FROM MEDICAL RECORDS STATED SHE WOULD SEND ALL RECORDS AND CONTACT DR WALLIS OFFICE TO MAKE SURE RECORDS ARE RECEIVED. - PROVIDER WILL REVIEW ALL RECORDS AND CONTACT PATIENT. 05/26/2018 [facility] - W tried to contact patient. Patient phone does not have a voicemail set up. - Patient was last seen by PCP Dr Wallis on November 30. - Please refer patient to PCP office for non emergent medical care. Eddie VISIT COUNT (12 MO.) 10 MARY ANNE Hannah TOTAL 10 NOTE: Visits indicate total known visits. ED/UCC VISIT TRACKING (12 MO.) 09/25/2019 01:03 MARY ANNE Jiang [place] TYPE: Emergency COMPLAINT: - MEDICAL CLEARANCE 08/23/2019 18:19 MARY ANNE Jiang [place] TYPE: Emergency COMPLAINT: - SOB DIAGNOSES: - Allergy status to penicillin - Bee allergy status - Upper abdominal pain, unspecified 08/09/2019 23:27 MARY ANNE Jiang [place] TYPE: Emergency COMPLAINT: - COUGH DIAGNOSES: [...] visits to display in this time frame [id number]
== END 2019-09-25 04:41 | disposition home or self-care (01) ==
LOC: ED 01:02
DX: R45.851 Suicidal ideations (principal); Z88.0 Allergy status to penicillin; Z91.030 Bee allergy status
CPT/HCPCS: 80053; 80176; 81001; 84443; 85025; 99284; G0480

== ENCOUNTER 2020-06-13 21:53 | Emergency (ER) | payer MEDICARE, OTHER ==
[~2020-06-13] VITALS: Ht 175.3 cm; Wt 83.9 kg
--- OUTSIDE RECORDS SUMMARY | ~2020-06-13 | XMS | Clinical Summary ---
Demographics + + + | Address | [address] | | | [place] [address] | + + + | Home Phone | | + + + | Preferred Language | Unknown | + + + | Marital Status | Single | + + + | Adventist Affiliation | Unknown | + + + [...] Team Providers + +------+ + | Care Rigging Man Name | Role | Phone | + +------+ + PCP | Unavailable | + +------+ + Source Comments LAVONNE is fully live on both [facility] Ambulatory and [facility] InPatient.[facility] Allergies Not on File Medications [...] on file | | + + + Last Filed Vital Signs Not on file Plan of Treatment + + +-------+ + | Health Maintenance | Due Date | Last | Comments | | | | Done | | + + +-------+ + | Influenza (Flu) | | | | | vaccination (#1) | 0 | | | + + +-------+ + | Pneumococcal | Aged Out | | No longer eligible based on patient's age | | vaccination | | | to complete this topic | + + +-------+ + Results Not on filefrom Last 3 Months"
--- OUTSIDE RECORDS SUMMARY | ~2020-06-13 | XMS | Encounter Summary ---
Demographics + + + | Address | [address] | | | [place] [address] | + + + | Home Phone | | + + + | Preferred Language | Unknown | + + + | Marital Status | Single | + + + | Nondenominational Affiliation | Unknown | + + + [...] + | Madhuri Fuller | SADIE | [place] | | + + + + + Care Team Providers + +------+ + | Care Energy Projects Lead Name | Role | Phone | + [...] on file | | + + + documented as of this encounter Progress Notes Interface, Elementary School Principal In - 08/05/2006 1:01 AM [facility] [place] [address] [address] or January 29, 2000 Jonah Del Rio [address] [place] [address] RE: RICHARD FULLER MR #: [id number] Dear Dr. Del Rio: Thank you for the referral of your patient Richard Fuller to the Pediatric Dermatology Clinic at [facility]. He was seen by Dr. Carolyn [...] patient to the Pediatric Dermatology Clinic at [facility]. If you have any questions or concerns, please do not hesitate to contact us at [phone]. Sincerely, Livia Prince M.D. Resident, Dermatology Carolyn Mckeon M.D. Geospatial Technologist, Pediatrics and Dermatology NILAY / HS [id number] / [id number] / [id number] / [id number] cc: Yann Jansen M.D. [address] [place] [address] [id number] signed by Interface, Elementary School Principal In at 08/05/2006 1:01 AM PSTdocume nted in this encounter Plan of Treatment Not on filedocumented as of this encounter Visit Diagnoses Not on filedocumented in this encounter"
[2020-06-13] MEDS ORDERED: QUETIAPINE FUM150 MG PO (22:13)
== END 2020-06-14 00:55 | disposition home or self-care (01) ==
LOC: ED 21:53
DX: R45.850 Homicidal ideations (principal); Z88.0 Allergy status to penicillin; Z91.030 Bee allergy status
CPT/HCPCS: 80053; 80176; 81001; 84443; 85025; 99284; G0480

== ENCOUNTER 2020-09-18 05:17 | Emergency (ER) | payer MEDICARE, OTHER ==
[~2020-09-18] VITALS: Ht 175.3 cm; Wt 84.3 kg
[~2020-09-18 05:17] MED LIST changes: +QUETIAPINE FUM150 MG PO
--- NOTE | 2020-09-18 07:00 | EKG ---
[facility] [address] [facility] [place], [place] [address] Signed Normal sinus rhythm Nonspecific T wave abnormality Abnormal ECG When compared with ECG of 18-JUL-2019 04:23, No significant change was found Confirmed by TROY DIEGO MD ([id number]) on 09/18/2020 6:59:57 AM Electronically Signed By: TROY DIEGO MD 09/18/20 0700 PATIENT NAME: ALINARICHARDDali GODINEZ Electrocardiogram DATE OF : [birth year] PHYSICIAN: TROY DIEGO MD REPORT #: [id number] REPORT IS CONFIDENTIAL AND NOT TO BE RELEASED WITHOUT AUTHORIZATION
== END 2020-09-18 06:10 | disposition home or self-care (01) ==
LOC: ED 05:17
DX: R00.2 Palpitations (principal); R42 Dizziness and giddiness; F17.200 Nicotine dependence, unspecified, uncomplicated; Z88.0 Allergy status to penicillin; Z91.030 Bee allergy status
CPT/HCPCS: 93005; 93010; 99285-25

== ENCOUNTER 2021-03-04 00:48 | Emergency (ER) | payer MEDICARE, OTHER ==
[~2021-03-04] VITALS: Ht 175.3 cm; Wt 77.1 kg
[2021-03-04] MEDS ORDERED: CEPHALEXIN500 MG PO (01:45)
[2021-03-04] MEDS ORDERED: BACTRIM DS TAB1 EACH PO (02:01)
[2021-05-03] MEDS ORDERED: CLINDAMYCIN HC300 MG PO (22:22)
== END 2021-03-04 01:53 | disposition home or self-care (01) ==
LOC: ED 00:48
DX: S61.402A Unspecified open wound of left hand, initial encounter (principal); L08.9 Local infection of the skin and subcutaneous tissue, unspecified; X58.XXXA Exposure to other specified factors, initial encounter; F17.200 Nicotine dependence, unspecified, uncomplicated; Z88.0 Allergy status to penicillin; Z91.030 Bee allergy status
CPT/HCPCS: 99282

== ENCOUNTER 2021-03-11 21:47 | Emergency (ER) | payer MEDICARE, OTHER ==
[~2021-03-11] VITALS: Ht 175.3 cm; Wt 66.0 kg
[~2021-03-11 21:47] MED LIST changes: +BACTRIM DS TAB1 EACH PO; +CEPHALEXIN500 MG PO
--- OUTSIDE RECORDS SUMMARY | 2021-03-11 21:56 | XMS ---
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 Security County Director Welfare Events No recent Security Events currently on file CRITERIA MET - [facility] - 2 Visits in 30 Days CARE PROVIDERS BIMAL, [facility] 05/26/2018-Current MARIA TERESA [employer] PHONE: [phone] [place] has no Care Guidelines for this patient. Care History Medical/Surgical 09/27/2019 [facility] - PATIENT CONTACT NUMBER IS A NON WORKING NUMBER. WRONG PHONE NUMBER Please update patient phone number when seen. CHW needs to contact patient - CHW NEEDS TO CONTACT PATIENT-PATIENT HAS NOT SEEN PCP FOR FOLLOW UP TO ED VISITS- -CHW WOULD LIKE TO HELP PATIENT ESTABLISH CARE WITH A PCP IN THE AREA. 08/10/2019 [facility] - W CALLED PATIENT PCP OFFICE-DR WALLIS- THEY HAVE NOT SEEN PATIENT SINCE JUNE AND NO FOLLOW UP APTS SCHEDULED. - DR WALLIS HAS NOT RECEIVED ER VISIT NOTES -CHW REQUESTED MEDICAL RECORDS TO SEND ALL ER NOTES FROM [facility] TO [phone] FAX NUMBER. - BEBE FROM MEDICAL RECORDS STATED SHE WOULD SEND ALL RECORDS AND CONTACT DR WALLIS OFFICE TO MAKE SURE RECORDS ARE RECEIVED. - PROVIDER WILL REVIEW ALL RECORDS AND CONTACT PATIENT. 05/26/2018 [facility] - CHW tried to contact patient. Patient phone does not have a voicemail set up. - Patient was last seen by PCP Dr Wallis on November 30. - Please refer patient to PCP office for non emergent medical care. Eddie VISIT COUNT (12 MO.) 4 [facility] TOTAL 4 NOTE: Visits indicate total known visits. ED/UCC VISIT TRACKING (12 MO.) 03/11/2021 21:47 [facility] [place] TYPE: Emergency COMPLAINT: - SHORTNESS OF BREATH 03/04/2021 00:49 [facility] [place] TYPE: Emergency COMPLAINT: - SKIN ISSUE DIAGNOSES: - Local infection of the skin and subcutaneous tissue, unspecified - Unspecified open wound of left hand, initial encounter - Cutaneous abscess of left lower limb - Exposure to other specified factors, initial encounter - Nicotine dependence, unspecified, uncomplicated - Allergy status to penicillin - Bee allergy status 09/18/2020 05:18 [facility] [place] TYPE: Emergency COMPLAINT: - POSSIBLE IRREGULAR HEART BEAT DIAGNOSES: - Palpitations - Bee allergy status - Nicotine dependence, unspecified, uncomplicated - Allergy status to penicillin - Dizziness and giddiness 06/13/2020 21:53 [facility] [place] TYPE: Emergency COMPLAINT: - MEDICAL CLEARANCE DIAGNOSES: - Antisocial personality disorder - Anxiety disorder, unspecified - Homicidal ideations - Other usp (current) drug therapy - Allergy status to penicillin - Major depressive disorder, single episode, unspecified - Bee allergy status INPATIENT VISIT TRACKING (12 MO.) No inpatient visits to display in this time frame [email or web address]
[2021-05-03] MEDS ORDERED: CLINDAMYCIN HC300 MG PO (22:22)
== END 2021-03-11 22:45 | disposition home or self-care (01) ==
LOC: ED 21:47
DX: T17.920A Food in respiratory tract, part unspecified causing asphyxiation, initial encounter (principal); F17.200 Nicotine dependence, unspecified, uncomplicated; Z91.030 Bee allergy status; Z88.0 Allergy status to penicillin
CPT/HCPCS: 99283

== ENCOUNTER 2021-03-12 15:09 | Emergency (ER) | payer MEDICARE, OTHER ==
[~2021-03-12] VITALS: Ht 175.3 cm; Wt 65.8 kg
--- OUTSIDE RECORDS SUMMARY | 2021-03-12 15:18 | XMS ---
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 Security Perinatal Specialist Events No recent Security Events currently on file CRITERIA MET - [facility] - 2 Visits in 30 Days CARE PROVIDERS RONAL [facility] 03/12/2021-Current PHONE: [phone] BIMAL [facility] 05/26/2018-Current MARIA TERESA [place] PHONE: [phone] [place] has no Care Guidelines for this patient. Care History Medical/Surgical 09/27/2019 [facility] - PATIENT CONTACT NUMBER IS A NON WORKING NUMBER. WRONG PHONE NUMBER Please update patient phone number when seen. CHW needs to contact patient - CHW NEEDS TO CONTACT PATIENT-PATIENT HAS NOT SEEN PCP FOR FOLLOW UP TO ED VISITS- -CHW WOULD LIKE TO HELP PATIENT ESTABLISH CARE WITH A PCP IN THE AREA. 08/10/2019 [facility] - CHW CALLED PATIENT PCP OFFICE-DR WALLIS- THEY HAVE NOT SEEN PATIENT SINCE JUNE AND NO FOLLOW UP APTS SCHEDULED. - DR WALLIS HAS NOT RECEIVED ER VISIT NOTES -CHW REQUESTED MEDICAL RECORDS TO SEND ALL ER NOTES FROM [facility] TO [phone] FAX NUMBER. - BEBE FROM MEDICAL RECORDS STATED SHE WOULD SEND ALL RECORDS AND CONTACT DR WALLIS OFFICE TO MAKE SURE RECORDS ARE RECEIVED. - PROVIDER WILL REVIEW ALL RECORDS AND CONTACT PATIENT. 05/26/2018 [facility] - CHW tried to contact patient. Patient phone does not have a voicemail set up. - Patient was last seen by PCP Dr Wallis on November 30. - Please refer patient to PCP office for non emergent medical care. E.D. VISIT COUNT (12 MO.) 5 [facility] TOTAL 5 NOTE: Visits indicate total known visits. ED/UCC VISIT TRACKING (12 MO.) 03/12/2021 15:[address] [facility] Charlo Juli Feliciano [place] TYPE: Emergency COMPLAINT: - SOB, SPITTING UP BLOOD 03/11/2021 21:[address] [facility] Charlo Juli Feliciano [place] TYPE: Emergency COMPLAINT: - SHORTNESS OF BREATH 03/04/2021 00:[address] [facility] St. Matt Feliciano [place] TYPE: Emergency COMPLAINT: - SKIN ISSUE [...] penicillin - Dizziness and giddiness 06/13/2020 21:[address] [facility] Fel[facility] [place] TYPE: Emergency COMPLAINT: - MEDICAL CLEARANCE DIAGNOSES: - Antisocial personality disorder - Anxiety disorder, unspecified - Homicidal ideations - Other jail (current) drug therapy - Allergy status to penicillin - Major depressive disorder, single episode, unspecified - Bee allergy status INPATIENT VISIT TRACKING (12 MO.) No inpatient visits to display in this time frame [id number]
[2021-03-13] MEDS ORDERED: QUETIAPINE FUM200 MG PO (21:51)
[2021-05-03] MEDS ORDERED: CLINDAMYCIN HC300 MG PO (22:22)
== END 2021-03-12 16:50 | disposition home or self-care (01) ==
LOC: ED 15:09
DX: J04.10 Acute tracheitis without obstruction (principal); Z87.891 Personal history of nicotine dependence; Z91.030 Bee allergy status; Z88.0 Allergy status to penicillin
CPT/HCPCS: 71046; 99283-25

== ENCOUNTER 2021-03-13 21:32 | Emergency (ER) | payer MEDICARE, OTHER ==
[~2021-03-13] VITALS: Ht 175.3 cm; Wt 65.8 kg
--- OUTSIDE RECORDS SUMMARY | 2021-03-13 21:42 | XMS ---
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 - 2 Visits in 30 Days CARE PROVIDERS RONAL [facility] 03/12/2021-Current PHONE: [phone] BIMAL [facility] 05/26/2018-Current MARIA TERESA [place] PHONE: [phone] [place] has no Care Guidelines for this patient. Care History Medical/Surgical 09/27/2019 [facility] - PATIENT CONTACT NUMBER IS A NON WORKING NUMBER. WRONG PHONE NUMBER Please update patient phone number when seen. CHW needs to contact patient - CHW NEEDS TO CONTACT PATIENT-PATIENT HAS NOT SEEN PCP FOR FOLLOW UP TO ED VISITS- -CHW WOULD LIKE TO HELP PATIENT ESTABLISH CARE WITH A PCP IN THE AREA. 08/10/2019 [facility] - CHW CALLED PATIENT PCP OFFICE-DR WALLIS- THEY HAVE NOT SEEN PATIENT SINCE JUNE AND NO FOLLOW UP APTS SCHEDULED. - DR WALLIS HAS NOT RECEIVED ER VISIT NOTES -CHW REQUESTED MEDICAL RECORDS TO SEND ALL ER NOTES FROM [facility] TO [phone] FAX NUMBER. - BEBE FROM MEDICAL RECORDS STATED SHE WOULD SEND ALL RECORDS AND CONTACT DR WALLIS OFFICE TO MAKE SURE RECORDS ARE RECEIVED. - PROVIDER WILL REVIEW ALL RECORDS AND CONTACT PATIENT. 05/26/2018 [facility] - CHW tried to contact patient. Patient phone does not have a voicemail set up. - Patient was last seen by PCP Dr Wallis on November 30. - Please refer patient to PCP office for non emergent medical care. E.D. VISIT COUNT (12 MO.) 6 [facility] TOTAL 6 NOTE: Visits indicate total known visits. ED/UCC VISIT TRACKING (12 MO.) 03/13/2021 21:33 [facility] [place] HAliya Feliciano [place] TYPE: Emergency COMPLAINT: - FLU SYMPTOMS 03/12/2021 15:10 [facility] HAliya Feliciano [place] TYPE: Emergency COMPLAINT: - SOB, SPITTING UP BLOOD 03/11/2021 21:47 [facility] [place] [facility] [place] HAliya Feliciano [place] TYPE: Emergency COMPLAINT: - SHORTNESS OF BREATH 03/04/2021 00:[address] [facility] [address] [facility] DaliAliya Feliciano [place] TYPE: Emergency COMPLAINT: - SKIN [...] disorder, unspecified - Homicidal ideations - Other intermediate project manager (current) drug therapy - Allergy status to penicillin - Major depressive disorder, single episode, unspecified - Bee allergy status INPATIENT VISIT TRACKING (12 MO.) No inpatient visits to display in this time frame [id number]
[2021-03-13] MEDS ORDERED: QUETIAPINE FUM200 MG PO (21:51)
[2021-05-03] MEDS ORDERED: CLINDAMYCIN HC300 MG PO (22:22)
== END 2021-03-13 22:39 | disposition home or self-care (01) ==
LOC: ED 21:32
DX: R09.89 Other specified symptoms and signs involving the circulatory and respiratory systems (principal); Z20.822 Contact with and (suspected) exposure to COVID-19; Z87.891 Personal history of nicotine dependence; Z88.0 Allergy status to penicillin; Z91.030 Bee allergy status; Z79.899 Other long term (current) drug therapy
CPT/HCPCS: 99283; C9803; U0003

== ENCOUNTER 2021-03-14 23:13 | Emergency (ER) | payer MEDICARE, OTHER ==
[~2021-03-14] VITALS: Ht 175.3 cm; Wt 65.8 kg
[~2021-03-14 23:13] MED LIST changes: +QUETIAPINE FUM200 MG PO
--- OUTSIDE RECORDS SUMMARY | 2021-03-14 23:16 | XMS ---
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 Care History Medical/Surgical 09/27/2019 [facility] - PATIENT CONTACT NUMBER IS A NON WORKING NUMBER. WRONG PHONE NUMBER Please update patient phone number when seen. CHW needs to contact patient - CHW NEEDS TO CONTACT PATIENT-PATIENT HAS NOT SEEN PCP FOR FOLLOW UP TO ED VISITS- -CHW WOULD LIKE TO HELP PATIENT ESTABLISH CARE WITH A PCP IN THE AREA. 08/10/2019 [facility] - CHW CALLED PATIENT PCP OFFICE-DR WALLIS- THEY HAVE NOT SEEN PATIENT SINCE JUNE AND NO FOLLOW UP APTS SCHEDULED. - DR WALLIS HAS NOT RECEIVED ER VISIT NOTES -W REQUESTED MEDICAL RECORDS TO SEND ALL ER NOTES FROM [facility] TO [phone] FAX NUMBER. - BEBE FROM MEDICAL RECORDS STATED SHE WOULD SEND ALL RECORDS AND CONTACT DR WALLIS OFFICE TO MAKE SURE RECORDS ARE RECEIVED. - PROVIDER WILL REVIEW ALL RECORDS AND CONTACT PATIENT. 05/26/2018 [facility] - CHW tried to contact patient. Patient phone does not have a voicemail set up. - Patient was last seen by PCP Dr Wallis on November 30. - Please refer patient to PCP office for non emergent medical care. E.D. VISIT COUNT (12 MO.) 7 [facility] TOTAL 7 NOTE: Visits indicate total known visits. ED/UCC VISIT TRACKING (12 MO.) 03/14/2021 23:[address] [facility] [address] [facility] McnallyAliya Feliciano [place] TYPE: Emergency COMPLAINT: - CHEST PAIN 03/13/2021 21:[address] [facility] [address] [facility] McnallyAliya Feliciano [place] TYPE: Emergency COMPLAINT: - FLU SYMPTOMS 03/12/2021 15:[address] [facility] [address] [facility] McnallyAliya Feliciano [place] TYPE: Emergency COMPLAINT: - SOB, SPITTING UP BLOOD 03/11/2021 21:47 [facility] [place] HAliya Feliciano [place] TYPE: Emergency COMPLAINT: - SHORTNESS OF BREATH DIAGNOSES: - Nicotine dependence, unspecified, uncomplicated - Allergy status to penicillin - Bee allergy status - Food in respiratory tract, part unspecified causing asphyxiation, initial encounter 03/04/2021 00:49 [facility] [place] HAliya Feliciano [place] TYPE: Emergency COMPLAINT: - SKIN ISSUE DIAGNOSES: - Local infection of the skin and subcutaneous tissue, unspecified - Unspecified open wound of left hand, initial encounter - Cutaneous abscess of left lower limb - Exposure to other specified factors, initial encounter - Nicotine dependence, unspecified, uncomplicated - Allergy status to penicillin - Bee allergy status 09/18/2020 05:18 [facility] [place] HAliya Feliciano [place] TYPE: Emergency COMPLAINT: - POSSIBLE IRREGULAR HEART BEAT DIAGNOSES: - Palpitations - Bee allergy status - Nicotine dependence, unspecified, uncomplicated - Allergy status to penicillin - Dizziness and giddiness 06/13/2020 21:[address] [facility] [place] TYPE: Emergency COMPLAINT: - MEDICAL CLEARANCE DIAGNOSES: - Antisocial personality disorder - Anxiety disorder, unspecified - Homicidal ideations - Other snf (current) drug therapy - Allergy status to penicillin - Major depressive disorder, single episode, unspecified - Bee allergy status INPATIENT VISIT TRACKING (12 MO.) No inpatient visits to display in this time frame [id number]
--- NOTE | 2021-03-15 07:13 | EKG ---
[facility] [address] [facility] [place], [place] [address] Signed Normal sinus rhythm Normal ECG When compared with ECG of 18-SEP-2020 05:22, No significant change was found Confirmed by TROY DIEGO MD ([id number]) on 03/15/2021 7:13:31 AM Electronically Signed By: TROY DIEGO MD 03/15/21712 PATIENT NAME: SHANE FULLERDali GODINEZ Electrocardiogram DATE OF : [birth year] PHYSICIAN: TROY DIEGO MD REPORT #: [id number] REPORT IS CONFIDENTIAL AND NOT TO BE RELEASED WITHOUT AUTHORIZATION
[2021-03-16] MEDS ORDERED: CLEOCIN HCL300 MG PO (17:19)
[2021-05-03] MEDS ORDERED: CLINDAMYCIN HC300 MG PO (22:22)
== END 2021-03-15 00:05 | disposition home or self-care (01) ==
LOC: ED 23:13
DX: G56.22 Lesion of ulnar nerve, left upper limb (principal); Z87.891 Personal history of nicotine dependence; Z88.0 Allergy status to penicillin; Z91.030 Bee allergy status; Z79.899 Other long term (current) drug therapy
CPT/HCPCS: 71046; 93005; 93010; 99284-25

== ENCOUNTER 2021-03-16 16:37 | Emergency (ER) | payer MEDICARE, OTHER ==
[~2021-03-16] VITALS: Ht 177.8 cm; Wt 77.3 kg
--- OUTSIDE RECORDS SUMMARY | 2021-03-16 16:44 | XMS ---
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 Security Logistics Operations Director Events No recent Security Events currently on file CRITERIA MET - 6 ED Visits in 6 Months - [facility] - 2 Visits in 30 Days CARE PROVIDERS RONAL [facility] 03/12/2021-Current PHONE: [phone] BIMAL [facility] 05/26/2018-Current MARIA TERESA [place] PHONE: [phone] [place] has no Care Guidelines for this patient. Care History Medical/Surgical 09/27/2019 [facility] - PATIENT CONTACT NUMBER IS A NON WORKING NUMBER. WRONG PHONE NUMBER Please update patient phone number when seen. CHW needs to contact patient - CHW NEEDS TO CONTACT PATIENT-PATIENT HAS NOT SEEN PCP FOR FOLLOW UP TO ED VISITS- -CHW WOULD LIKE TO HELP PATIENT ESTABLISH CARE WITH A PCP IN THE AREA. 08/10/2019 [facility] - CHW CALLED PATIENT PCP OFFICE-DR WALLIS- THEY HAVE NOT SEEN PATIENT SINCE JUNE AND NO FOLLOW UP APTS SCHEDULED. - DR WALLIS HAS NOT RECEIVED ER VISIT NOTES -W REQUESTED MEDICAL RECORDS TO SEND ALL ER NOTES FROM [facility] TO [phone] FAX NUMBER. - BEBE FROM MEDICAL RECORDS STATED SHE WOULD SEND ALL RECORDS AND CONTACT DR WALLIS OFFICE TO MAKE SURE RECORDS ARE RECEIVED. - PROVIDER WILL REVIEW ALL RECORDS AND CONTACT PATIENT. 05/26/2018 [facility] - CHW tried to contact patient. Patient phone does not have a voicemail set up. - Patient was last seen by PCP Dr Wallis on November 30. - Please refer patient to PCP office for non emergent medical care. E.D. VISIT COUNT (12 MO.) 8 [facility] TOTAL 8 NOTE: Visits indicate total known visits. ED/UCC VISIT TRACKING (12 MO.) 03/16/2021 16:37 [facility] [place] TYPE: Emergency COMPLAINT: - FEVER, DENTAL PAIN 03/14/2021 23:14 [facility] [place] TYPE: Emergency COMPLAINT: - CHEST PAIN DIAGNOSES: - Bee allergy status - Lesion of ulnar nerve, left upper limb - Allergy status to penicillin - Personal history of nicotine dependence - Other assistant terminal manager (current) drug therapy 03/13/2021 21:33 [facility] [address] McnallyAliya Felician[place] TYPE: Emergency COMPLAINT: - FLU SYMPTOMS DIAGNOSES: - Other specified symptoms and signs involving the circulatory and respiratory systems - Allergy status to penicillin - Bee allergy status - Cough - Personal history of nicotine dependence - Other mcc (current) drug therapy 03/12/2021 15:[address] [facility] [address] [facility] McnallyAliya Feliciano [place] TYPE: Emergency COMPLAINT: - SOB, SPITTING UP BLOOD DIAGNOSES: - Acute tracheitis without obstruction - Bee allergy status - Personal history of nicotine dependence - Cough - Allergy status to penicillin 03/11/2021 21:47 MARY ANNE [place] TYPE: Emergency COMPLAINT: - SHORTNESS OF BREATH DIAGNOSES: - Nicotine dependence, unspecified, uncomplicated - Allergy status to penicillin - Bee allergy status - Food in respiratory tract, part unspecified causing asphyxiation, initial encounter 03/04/2021 00:49 [facility] AN[facility] [place] TYPE: [...] disorder, unspecified - Homicidal ideations - Other assistant terminal manager (current) drug therapy - Allergy status to penicillin - Major depressive disorder, single episode, unspecified - Bee allergy status INPATIENT VISIT TRACKING (12 MO.) No inpatient visits to display in this time frame [id number]
[2021-03-16] MEDS ORDERED: CLEOCIN HCL300 MG PO (17:19)
[2021-05-03] MEDS ORDERED: CLINDAMYCIN HC300 MG PO (22:22)
== END 2021-03-16 17:41 | disposition home or self-care (01) ==
LOC: ED 16:37
DX: K05.319 Chronic periodontitis, localized, unspecified severity (principal); K02.9 Dental caries, unspecified; Z87.891 Personal history of nicotine dependence; Z91.030 Bee allergy status; Z88.0 Allergy status to penicillin; Z79.899 Other long term (current) drug therapy
CPT/HCPCS: 10160; 99282-25

== ENCOUNTER 2021-04-04 10:37 | Emergency (ER) | payer MEDICARE, OTHER ==
[~2021-04-04] VITALS: Ht 177.8 cm; Wt 77.3 kg
[~2021-04-04 10:37] MED LIST changes: +CLEOCIN HCL300 MG PO
--- OUTSIDE RECORDS SUMMARY | 2021-04-04 10:44 | XMS ---
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 Security Contingents Supervisor Events No recent Security Events currently on file CRITERIA MET - [facility] - 2 Visits in 30 Days - 6 ED Visits in 6 Months CARE PROVIDERS RONAL [facility] 03/12/2021-Current PHONE: [phone] BIMAL [facility] 05/26/2018-Current MARIA TERESA [place] PHONE: [phone] [place] has no Care Guidelines for this patient. Care History Medical/Surgical 09/27/[address] [facility] - PATIENT CONTACT NUMBER IS A NON WORKING NUMBER. WRONG PHONE NUMBER Please update patient phone number when seen. CHW needs to contact patient - CHW NEEDS TO CONTACT PATIENT-PATIENT HAS NOT SEEN PCP FOR FOLLOW UP TO ED VISITS- -CHW WOULD LIKE TO HELP PATIENT ESTABLISH CARE WITH A PCP IN THE AREA. 08/10/[address] [facility] - CHW CALLED PATIENT PCP OFFICE-DR WALLIS- THEY HAVE NOT SEEN PATIENT SINCE JUNE AND NO FOLLOW UP APTS SCHEDULED. - DR WALLIS HAS NOT RECEIVED ER VISIT NOTES -W REQUESTED MEDICAL RECORDS TO SEND ALL ER NOTES FROM [facility] TO [phone] FAX NUMBER. - BEBE FROM MEDICAL RECORDS STATED SHE WOULD SEND ALL RECORDS AND CONTACT DR WALLIS OFFICE TO MAKE SURE RECORDS ARE RECEIVED. - PROVIDER WILL REVIEW ALL RECORDS AND CONTACT PATIENT. 05/26/[address] [facility] - CHW tried to contact patient. Patient phone does not have a voicemail set up. - Patient was last seen by PCP Dr Wallis on November 30. - Please refer patient to PCP office for non emergent medical care. E.D. VISIT COUNT (12 MO.) 9 [facility] TOTAL 9 NOTE: Visits indicate total known visits. ED/UCC VISIT TRACKING (12 MO.) 04/04/2021 10:38 [facility] [place] HAliya Feliciano [place] TYPE: Emergency COMPLAINT: - WEAKNESS 03/16/2021 16:37 [facility] [place] HAliya Feliciano [place] TYPE: Emergency COMPLAINT: - FEVER, DENTAL PAIN DIAGNOSES: - Other specified disorders of teeth and supporting structures - Dental caries, unspecified - Personal history of nicotine dependence - Other mixer dry food products (current) drug therapy - Bee allergy status - Chronic periodontitis, localized, unspecified severity - Allergy status to penicillin 03/14/2021 23:14 [facility] [place] HAliya Feliciano [place] TYPE: Emergency COMPLAINT: - CHEST PAIN DIAGNOSES: - Bee allergy status - Lesion of ulnar nerve, left upper limb - Allergy status to penicillin - Personal history of nicotine dependence - Other mixer dry food products (current) drug therapy 03/13/2021 21:33 [facility] [place] HAliya Feliciano [place] TYPE: Emergency COMPLAINT: - FLU SYMPTOMS DIAGNOSES: - Other specified symptoms and signs involving the circulatory and respiratory systems - Allergy status to penicillin - Bee allergy status - Cough - Personal history of nicotine dependence - Other longterm (current) drug therapy 03/12/2021 15:10 MARY ANNE [place] TYPE: Emergency COMPLAINT: - SOB, SPITTING [...] disorder, unspecified - Homicidal ideations - Other mixer dry food products (current) drug therapy - Allergy status to penicillin - Major depressive disorder, single episode, unspecified - Bee allergy status INPATIENT VISIT TRACKING (12 MO.) No inpatient visits to display in this time frame [id number]
[2021-04-04] MEDS ORDERED: ONDANSETRON ODT8 MG PO (11:40)
[2021-05-03] MEDS ORDERED: CLINDAMYCIN HC300 MG PO (22:22)
== END 2021-04-04 11:57 | disposition home or self-care (01) ==
LOC: ED 10:37
DX: B34.9 Viral infection, unspecified (principal); Z88.0 Allergy status to penicillin; Z91.030 Bee allergy status
CPT/HCPCS: 80053; 85025; 96374; 99284-25; J2405; J7030

== ENCOUNTER 2021-04-12 22:22 | Emergency (ER) | payer MEDICARE, OTHER ==
[~2021-04-12] VITALS: Ht 177.8 cm; Wt 76.7 kg
[~2021-04-12 22:22] MED LIST changes: +ONDANSETRON ODT8 MG PO
--- OUTSIDE RECORDS SUMMARY | 2021-04-12 22:30 | XMS ---
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 Care History Medical/Surgical 04/10/2021 [facility] - PATIENT WAS SCHEDULED FOR FOLLOW UP APT WITH DR VILLEDA ON 03/28/21. PATIENT NO SHOWED TO APT. - PATIENT HAS A FOLLOW UP APT TODAY 04/10/21 @ 3:00PM WITH DR VILLEDA. - CHW TRIED CALL PATIENT- NO VM, CHW CALLED PATIENT MOM CONTACT NUMBER AND NO ANSWER. 09/27/2019 [facility] - PATIENT CONTACT NUMBER IS A NON WORKING NUMBER. WRONG PHONE NUMBER Please update patient phone number when seen. CHW needs to contact patient - CHW NEEDS TO CONTACT PATIENT-PATIENT HAS NOT SEEN PCP FOR FOLLOW UP TO ED VISITS- -CHW WOULD LIKE TO HELP PATIENT ESTABLISH CARE WITH A PCP IN THE AREA. 08/10/2019 [facility] - CHW CALLED PATIENT PCP OFFICE-DR WALLIS- THEY HAVE NOT SEEN PATIENT SINCE JUNE AND NO FOLLOW UP APTS SCHEDULED. - DR WALLIS HAS NOT RECEIVED ER VISIT NOTES -CHW REQUESTED MEDICAL RECORDS TO SEND ALL ER NOTES FROM MAY FORWARD TO [phone] FAX NUMBER. - BEBE FROM MEDICAL RECORDS STATED SHE WOULD SEND ALL RECORDS AND CONTACT DR WALLIS OFFICE TO MAKE SURE RECORDS ARE RECEIVED. - PROVIDER WILL REVIEW ALL RECORDS AND CONTACT PATIENT. E.D. VISIT COUNT (12 MO.) 10 [facility]. TOTAL 10 NOTE: Visits indicate total known visits. ED/UCC VISIT TRACKING (12 MO.) 04/12/2021 22:23 [facility] [place] TYPE: Emergency COMPLAINT: - DIZZINESS 04/04/2021 10:38 [facility] [place] TYPE: Emergency COMPLAINT: - WEAKNESS DIAGNOSES: - Dizziness and giddiness - Bee allergy status - Viral infection, unspecified - Allergy status to penicillin 03/16/2021 16:37 [facility] [place] TYPE: Emergency COMPLAINT: - FEVER, DENTAL PAIN DIAGNOSES: - Other specified disorders of teeth and supporting structures - Dental caries, unspecified - Personal history of nicotine dependence - Other intermediate (current) drug therapy - Bee allergy status - Chronic periodontitis, localized, unspecified severity - Allergy status to penicillin 03/14/2021 23:14 [facility] [place] TYPE: Emergency COMPLAINT: - CHEST PAIN DIAGNOSES: - Bee allergy status - Lesion of ulnar nerve, left upper limb - Allergy status to penicillin - Personal history of nicotine dependence - Other veneer splicer (current) drug therapy 03/13/2021 21:33 [facility] [place] TYPE: Emergency COMPLAINT: - FLU SYMPTOMS DIAGNOSES: - Other specified symptoms and signs involving the circulatory and respiratory systems - Allergy status to penicillin - Bee allergy status - Cough - Personal history of nicotine dependence - Other intermediate (current) drug therapy 03/12/2021 15:10 [facility] [place] TYPE: Emergency COMPLAINT: - SOB, SPITTING UP BLOOD DIAGNOSES: - Acute tracheitis without obstruction - Bee allergy status - Personal history of nicotine dependence - Cough - Allergy status to penicillin 03/11/2021 21:47 [facility] [place] TYPE: Emergency COMPLAINT: - SHORTNESS [...] disorder, unspecified - Homicidal ideations - Other veneer splicer (current) drug therapy - Allergy status to penicillin - Major depressive disorder, single episode, unspecified - Bee allergy status INPATIENT VISIT TRACKING (12 MO.) No inpatient visits to display in this time frame [email or web address]
[2021-04-12] MEDS ORDERED: QUETIAPINE FUMA50 MG PO (23:45)
[2021-05-03] MEDS ORDERED: CLINDAMYCIN HC300 MG PO (22:22)
== END 2021-04-13 01:11 | disposition home or self-care (01) ==
LOC: ED 22:22
DX: R10.13 Epigastric pain (principal); R51.9 Headache, unspecified; R21 Rash and other nonspecific skin eruption; Z87.891 Personal history of nicotine dependence; Z88.0 Allergy status to penicillin; Z91.030 Bee allergy status; Z79.899 Other long term (current) drug therapy
CPT/HCPCS: 70450; 80053; 81001; 83735; 85025; 96374; 99284-25; J2405

== ENCOUNTER 2021-06-13 19:05 | Emergency (ER) | payer MEDICARE, OTHER ==
[~2021-06-13] VITALS: Ht 177.8 cm; Wt 74.8 kg
[~2021-06-13 19:05] MED LIST changes: +CLINDAMYCIN HC300 MG PO; +QUETIAPINE FUMA50 MG PO
--- OUTSIDE RECORDS SUMMARY | 2021-06-13 19:12 | XMS ---
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 No recent Security Events currently on file CRITERIA MET - 6 ED Visits in 6 Months - [facility] - 2 Visits in 30 Days - [facility] - Has Care Guidelines CARE PROVIDERS YULY VILLEDA [facility] 03/12/2021-Current PHONE: [phone] [facility]Eliseo Almonte PHONE: [phone] LEW BAUGH Physician Leather Grader Current PHONE: [phone] Guidelines Source: [facility] Guidelines Date: 04/18/2021 Care Coordination: PATIENT DID NOT SHOW FOR PCP APPT 03/28/21.\T\nbsp; IS BEING DISCHARGED FROM [facility] HE HAS MULTIPLE NO-SHOWS.\T\nbsp; PATIENT IS SEEN BY [facility].\T\nbsp; HAS COUNSELOR.\T\nbsp; THEY WILL TRY TALKING WITH HIM AT NEXT APPT.\T\nbsp; PATIENT ALSO IS REFERRED TO [facility] FOR CASE MANAGEMENT TEAM.\T\ nbsp; Care History Medical/Surgical 05/13/2021 [facility] - [facility] REFERRAL MADE TO [facility]NAGEMENT TO HELP PATIENT WITH MEDICAL FOLLOW P AND CLOSE FOLLOW UP WITH PCP. 04/10/2021 [facility] - PATIENT WAS SCHEDULED FOR FOLLOW UP APT WITH DR VILLEDA ON 03/28/21. PATIENT NO SHOWED TO APT. - PATIENT HAS A FOLLOW UP APT TODAY 04/10/21 @ 3:00PM WITH DR VILLEDA. - CHW TRIED CALL PATIENT- NO VM, CHW CALLED PATIENT MOM CONTACT NUMBER AND NO ANSWER. 09/27/2019 [facility] - PATIENT CONTACT NUMBER IS A NON WORKING NUMBER. WRONG PHONE NUMBER Please update patient phone number when seen. CHW needs to contact patient - CHW NEEDS TO CONTACT PATIENT-PATIENT HAS NOT SEEN PCP FOR FOLLOW UP TO ED VISITS- -CHW WOULD LIKE TO HELP PATIENT ESTABLISH CARE WITH A PCP IN THE AREA. E.D. VISIT COUNT (12 MO.) 13 [facility]. TOTAL 13 NOTE: Visits indicate total known visits. ED/UCC VISIT TRACKING (12 MO.) 06/13/2021 19:05 [facility] [place] TYPE: Emergency COMPLAINT: - SOB 05/17/2021 03:38 [facility] [place] TYPE: Emergency COMPLAINT: - HEAD LACERATION 05/03/2021 22:13 [facility] [place] TYPE: Emergency COMPLAINT: - RT ARM BUG BITE 04/12/2021 22:23 [facility] [place] [facility] COMPLAINT: - DIZZINESS DIAGNOSES: - Dizziness and giddiness - Headache, unspecified - Allergy status to penicillin - Other fpc (current) drug therapy - Epigastric pain - Personal history of nicotine dependence - Rash and other nonspecific skin eruption - Bee allergy status 04/04/2021 10:38 [facility] [place]: Emergency COMPLAINT: - WEAKNESS DIAGNOSES: - Dizziness and giddiness - Bee allergy status - Viral infection, unspecified - Allergy status to penicillin 03/16/2021 16:37 [facility] [place] TYPE: Emergency COMPLAINT: - FEVER, DENTAL PAIN DIAGNOSES: - Other specified disorders of teeth and supporting structures - Dental caries, unspecified - Personal history of nicotine dependence - Other terminal clerk (current) drug therapy - Bee allergy status - Chronic periodontitis, localized, unspecified severity - Allergy status to penicillin 03/14/2021 23:14 [facility] [place] TYPE: Emergency COMPLAINT: - CHEST PAIN DIAGNOSES: - Bee allergy status - Lesion of ulnar nerve, left upper limb - Allergy status to penicillin - Personal history of nicotine dependence - Other fpc (current) drug therapy 03/13/2021 21:33 [facility] [place] TYPE: Emergency COMPLAINT: - FLU SYMPTOMS DIAGNOSES: - Other specified symptoms and signs involving the circulatory and respiratory systems - Allergy status to penicillin - Bee allergy status - Cough - Personal history of nicotine dependence - Other terminal clerk (current) drug therapy 03/12/2021 15:10 [facility] [...] disorder, unspecified - Homicidal ideations - Other terminal clerk (current) drug therapy - Allergy status to penicillin - Major depressive disorder, single episode, unspecified - Bee allergy status INPATIENT VISIT TRACKING (12 MO.) No inpatient visits to display in this time frame [email or web address]
--- NOTE | 2021-06-14 07:17 | EKG ---
[facility] [address] [place] [address] Signed Normal sinus rhythm Normal ECG When compared with ECG of 14-MAR-2021 23:18, Nonspecific T wave abnormality no longer evident in Anterior leads Confirmed by TROY DIEGO MD ([id number]) on 06/14/2021 7:17:15 AM Electronically Signed By: TROY DIEGO MD 06/14/21 0717 PATIENT NAME: ALINARICHARD Electrocardiogram DATE OF : [birth year] PHYSICIAN: TROY DIEGO MD REPORT #: [id number] REPORT IS CONFIDENTIAL AND NOT TO BE RELEASED WITHOUT AUTHORIZATION
== END 2021-06-13 22:16 | disposition home or self-care (01) ==
LOC: ED 19:05
DX: U07.1 COVID-19 (principal); Z87.891 Personal history of nicotine dependence; Z88.0 Allergy status to penicillin; Z91.030 Bee allergy status
CPT/HCPCS: 71045; 80053; 85025; 93005; 93010; 99285-25

== ENCOUNTER 2021-07-25 01:06 | Emergency (ER) | payer MEDICARE, OTHER ==
[~2021-07-25] VITALS: Ht 177.8 cm; Wt 69.1 kg
--- OUTSIDE RECORDS SUMMARY | 2021-07-25 01:14 | XMS ---
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 Security Loading Inspector Events No recent Security Events currently on file CRITERIA MET - 6 ED Visits in 6 Months - [facility] - Has Care Guidelines CARE PROVIDERS YULY VILLEDA [facility] 03/12/2021-Current PHONE: [phone] [facility]Eliseo Almonte PHONE: [phone] LEW BAUGH Physician Yarn Mercerizer Operator Current PHONE: [phone] Guidelines Source: [facility] Guidelines Date: 04/18/2021 Care Coordination: PATIENT DID NOT SHOW FOR PCP APPT 03/28/21.\T\nbsp; IS BEING DISCHARGED FROM [facility] HE HAS MULTIPLE NO-SHOWS.\T\nbsp; PATIENT IS SEEN BY [facility].\T\nbsp; HAS COUNSELOR.\T\nbsp; THEY WILL TRY TALKING WITH HIM AT NEXT APPT.\T\nbsp; PATIENT ALSO IS REFERRED TO [facility] FOR CASE MANAGEMENT TEAM.\T\ nbsp; Care History Medical/Surgical 05/13/2021 [facility] - [facility] REFERRAL MADE TO [facility] CASE MANAGEMENT TO HELP PATIENT WITH MEDICAL FOLLOW P AND CLOSE FOLLOW UP WITH PCP. 04/10/2021 [facility] - PATIENT WAS SCHEDULED FOR FOLLOW UP APT WITH DR VILLEDA ON 03/28/21. PATIENT NO SHOWED TO APT. - PATIENT HAS A FOLLOW UP APT TODAY 04/10/21 @ 3:00PM WITH DR VILLEDA. - CHW TRIED CALL PATIENT- NO VM, CHW CALLED PATIENT MOM CONTACT NUMBER AND NO ANSWER. 09/27/2019 [facility] - PATIENT CONTACT NUMBER IS A NON WORKING NUMBER. WRONG PHONE NUMBER Please update patient phone number when seen. CHW needs to contact patient - CHW NEEDS TO CONTACT PATIENT-PATIENT HAS NOT SEEN PCP FOR FOLLOW UP TO ED VISITS- -CHW WOULD LIKE TO HELP PATIENT ESTABLISH CARE WITH A PCP IN THE AREA. EAugustine. VISIT COUNT (12 MO.) 13 [facility]. TOTAL 13 NOTE: Visits indicate total known visits. ED/UCC VISIT TRACKING (12 MO.) 07/25/2021 01:07 [facility] [place] TYPE: Emergency COMPLAINT: - ABD PAIN 06/13/2021 19:05 [facility] [place] TYPE: Emergency COMPLAINT: - SOB DIAGNOSES: - Allergy status to penicillin - Bee allergy status - Personal history of nicotine dependence - COVID-19 05/17/2021 03:38 [facility] [place] TYPE: Emergency COMPLAINT: - HEAD LACERATION 05/03/2021 22:13 [facility] [place] TYPE: Emergency COMPLAINT: - RT ARM BUG BITE 04/12/2021 22:23 [facility] [place] TYPE: Emergency COMPLAINT: - DIZZINESS DIAGNOSES: - Dizziness and giddiness - Headache, unspecified - Allergy status to penicillin - Other jail (current) drug therapy - Epigastric pain - Personal history of nicotine dependence - Rash and other nonspecific skin eruption - Bee allergy status 04/04/2021 10:38 [facility] [place] TYPE: [...] Personal history of nicotine dependence - Other long filler cigar roller machine (current) drug therapy - Bee allergy status - Chronic periodontitis, localized, unspecified severity - Allergy status to penicillin 03/14/2021 23:14 [facility] [place] TYPE: Emergency COMPLAINT: - CHEST PAIN DIAGNOSES: - Bee allergy status - Lesion of ulnar nerve, left upper limb - Allergy status to penicillin - Personal history of nicotine dependence - Other jail (current) drug therapy 03/13/2021 21:33 [facility] [place] TYPE: Emergency COMPLAINT: - FLU SYMPTOMS DIAGNOSES: - Other specified symptoms and signs involving the circulatory and respiratory systems - Allergy status to penicillin - Bee allergy status - Cough - Personal history of nicotine dependence - Other long filler cigar roller machine (current) drug therapy 03/12/2021 15:10 MARY ANNE [...] penicillin - Bee allergy status 09/18/2020 05:18 [facility] [address] [facility] [place] TYPE: Emergency COMPLAINT: - POSSIBLE IRREGULAR HEART BEAT DIAGNOSES: - Palpitations - Bee allergy status - Nicotine dependence, unspecified, uncomplicated - Allergy status to penicillin - Dizziness and giddiness INPATIENT VISIT TRACKING (12 MO.) No inpatient visits to display in this time frame [id number]
[2021-07-25] MEDS ORDERED: CLINDAMYCIN HC300 MG PO (01:20)
== END 2021-07-25 03:36 | disposition home or self-care (01) ==
LOC: ED 01:06
DX: K80.20 Calculus of gallbladder without cholecystitis without obstruction (principal); Z87.891 Personal history of nicotine dependence; Z88.0 Allergy status to penicillin; Z91.030 Bee allergy status
CPT/HCPCS: 76705; 80053; 81001; 83690; 85025; 99284-25; J2405

== ENCOUNTER 2021-08-22 00:45 | Emergency (ER) | payer MEDICARE, OTHER ==
[~2021-08-22] VITALS: Ht 177.8 cm; Wt 69.1 kg
--- OUTSIDE RECORDS SUMMARY | 2021-08-22 00:52 | XMS ---
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 Security Rn Labor And Delivery Events No recent Security Events currently on file CRITERIA MET - [facility] - Has Care Guidelines - 6 ED Visits in 6 Months - [facility] - 2 Visits in 30 Days CARE PROVIDERS YULY VILLEDA [facility] 03/12/2021-Current PHONE: [phone] [facility]Eliseo MOREL Verbling PHONE: [phone] LEW BAUGH Physician Freezer Operator Current PHONE: Unknown Guidelines Source: [facility] Guidelines Date: 04/18/2021 Care Coordination: PATIENT DID NOT SHOW FOR PCP APPT 03/28/21.\T\nbsp; IS BEING DISCHARGED FROM [facility] HE HAS MULTIPLE NO-SHOWS.\T\nbsp; PATIENT IS SEEN BY [facility].\T\nbsp; HAS COUNSELOR.\T\nbsp; THEY WILL TRY TALKING WITH HIM AT NEXT APPT.\T\nbsp; PATIENT ALSO IS REFERRED TO [facility] FOR CASE MANAGEMENT TEAM.\T\ nbsp; Care History Medical/Surgical 05/13/2021 [facility] - [facility] TO HELP PATIENT WITH MEDICAL FOLLOW P AND CLOSE FOLLOW UP WITH PCP. 04/10/2021 [facility] - PATIENT WAS SCHEDULED FOR FOLLOW UP APT WITH DR VILLEDA ON 03/28/21. PATIENT NO SHOWED TO APT. - PATIENT HAS A FOLLOW UP APT TODAY 04/10/21 @ 3:00PM WITH DR VILLEDA. - CHW TRIED CALL PATIENT- NO VM, CHW CALLED PATIENT MOM CONTACT NUMBER AND NO ANSWER. 09/27/2019 [facility] - PATIENT CONTACT NUMBER IS A NON WORKING NUMBER. WRONG PHONE NUMBER Please update patient phone number when seen. CHW needs to contact patient - CHW NEEDS TO CONTACT PATIENT-PATIENT HAS NOT SEEN PCP FOR FOLLOW UP TO ED VISITS- -CHW WOULD LIKE TO HELP PATIENT ESTABLISH CARE WITH A PCP IN THE AREA. E.D. VISIT COUNT (12 MO.) 15 [facility]. TOTAL 15 NOTE: Visits indicate total known visits. ED/UCC VISIT TRACKING (12 MO.) 08/22/2021 00:46 [facility] [place] TYPE: Emergency COMPLAINT: - RIGHT ELBOW INJ 08/16/2021 21:08 [facility] [place] TYPE: Emergency COMPLAINT: - CHEST PAIN DIAGNOSES: - Allergy status to penicillin - Bee allergy status - Pain in left shoulder - Personal history of nicotine dependence - Other chest pain 07/25/2021 01:07 [facility] [place] TYPE: Emergency COMPLAINT: - ABD PAIN DIAGNOSES: - Calculus of gallbladder without cholecystitis without obstruction - Bee allergy status - Personal history of nicotine dependence - Allergy status to penicillin - Unspecified abdominal pain 06/13/2021 19:05 [facility] [place] TYPE: Emergency COMPLAINT: - SOB DIAGNOSES: - Allergy status to penicillin - Bee allergy status - Personal history of nicotine dependence - COVID-19 05/17/2021 03:38 [facility] [place] TYPE: Emergency COMPLAINT: - HEAD LACERATION 05/03/2021 22:13 [facility] [place] TYPE: Emergency COMPLAINT: - RT ARM BUG BITE 04/12/2021 22:23 [facility] [place] TYPE: Emergency COMPLAINT: - DIZZINESS DIAGNOSES: - Dizziness and giddiness - Headache, unspecified - Allergy status to penicillin - Other chcf (current) drug therapy - Epigastric pain - [...] Personal history of nicotine dependence - Other intermodal dispatcher (current) drug therapy - Bee allergy status - Chronic periodontitis, localized, unspecified severity - Allergy status to penicillin 03/14/2021 23:14 [facility] [place] TYPE: Emergency COMPLAINT: - CHEST PAIN DIAGNOSES: - Bee allergy status - Lesion of ulnar nerve, left upper limb - Allergy status to penicillin - Personal history of nicotine dependence - Other chcf (current) drug therapy 03/13/2021 21:33 [facility] [place] TYPE: Emergency COMPLAINT: - FLU SYMPTOMS DIAGNOSES: - Other specified symptoms and signs involving the circulatory and respiratory systems - Allergy status to penicillin - Bee allergy status - Cough - Personal history of nicotine dependence - Other chcf (current) drug therapy 03/12/2021 15:10 [facility] ANNE [...] visits to display in this time frame [email or web address]
== END 2021-08-22 02:27 | disposition home or self-care (01) ==
LOC: ED 00:45
DX: S50.01XA Contusion of right elbow, initial encounter (principal); Z87.891 Personal history of nicotine dependence; Z88.0 Allergy status to penicillin; Z91.030 Bee allergy status; Z79.899 Other long term (current) drug therapy; W01.10XA Fall on same level from slipping, tripping and stumbling with subsequent striking against unspecified object, initial encounter
CPT/HCPCS: 73080; 99283-25

== ENCOUNTER 2021-09-01 12:25 | Emergency (ER) | payer MEDICARE, OTHER ==
[~2021-09-01] VITALS: Ht 177.8 cm; Wt 66.7 kg
--- OUTSIDE RECORDS SUMMARY | 2021-09-01 12:34 | XMS ---
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Current MARIA TERESA [employer] PHONE: [phone] LEW ABUGH Physician Dairy Processing Supervisor Current PHONE: Unknown Guidelines Source: [facility] Guidelines Date: 04/18/2021 Care Coordination: PATIENT DID NOT SHOW FOR PCP APPT 03/28/21.\T\nbsp; [facility] HE HAS MULTIPLE NO-SHOWS.\T\nbsp; PATIENT IS SEEN [facility].\T\nbsp; HAS COUNSELOR.\T\nbsp; THEY WILL TRY TALKING WITH HIM AT NEXT APPT.\T\nbsp; PATIENT ALSO IS REFERRED TO [facility] FOR CASE MANAGEMENT TEAM.\T\ nbsp; Care History Medical/Surgical 08/22/2021 [facility] - CHW CALLED PATIENT-LEFT A VOICEMAIL. - [facility] REFERRAL TO [facility] WILL BE SENT AGAIN FOR FURTHER FOLLOW UP WITH PATIENT. 05/13/2021 [facility] - [facility] REFERRAL MADE TO [facility] CASE MANAGEMENT TO HELP PATIENT WITH MEDICAL FOLLOW P AND CLOSE FOLLOW UP WITH PCP. 04/10/2021 [facility] - PATIENT WAS SCHEDULED FOR FOLLOW UP APT WITH DR VILLEDA ON 03/28/21. PATIENT NO SHOWED TO APT. - PATIENT HAS A FOLLOW UP APT TODAY 04/10/21 @ 3:00PM WITH DR VILLEDA. - CHW TRIED CALL PATIENT- NO VM, CHW CALLED PATIENT MOM CONTACT NUMBER AND NO ANSWER. E.D. VISIT COUNT (12 MO.) 16 [facility]. TOTAL 16 NOTE: Visits indicate total known visits. ED/C VISIT TRACKING (12 MO.) 09/01/2021 12:26 [facility] [place] TYPE: Emergency COMPLAINT: - SORE THROAT 08/22/2021 00:46 [facility] [place] TYPE: Emergency COMPLAINT: - RIGHT ELBOW INJ DIAGNOSES: - Personal history of nicotine dependence - Other prison (current) drug therapy - Bee allergy status - Contusion of right elbow, initial encounter - Allergy status to penicillin - Pain in right elbow - Fall on same level from slipping, tripping and stumbling with subsequent striking against unspecified object, initial encounter 08/16/2021 21:08 [facility] [place] TYPE: [...] - RT ARM BUG BITE 04/12/2021 22:23 [facility] [place] TYPE: Emergency COMPLAINT: - DIZZINESS DIAGNOSES: - Dizziness and giddiness - Headache, unspecified - Allergy status to penicillin - Other prison (current) drug therapy - Epigastric pain - Personal history of nicotine dependence - Rash and other nonspecific skin eruption - Bee allergy status 04/04/2021 10:[address] [facility] [address] [facility] [place] TYPE: Emergency COMPLAINT: - WEAKNESS DIAGNOSES: - Dizziness and giddiness - Bee allergy status - Viral infection, unspecified - Allergy status to penicillin 03/16/2021 16:[address] [facility] [address] [facility] [place] TYPE: Emergency COMPLAINT: - FEVER, DENTAL PAIN DIAGNOSES: - Other specified disorders of teeth and supporting structures - Dental caries, unspecified - Personal history of nicotine dependence - Other buttermaker helper (current) drug therapy - Bee allergy status - Chronic periodontitis, localized, unspecified severity - Allergy status to penicillin 03/14/2021 23:14 [facility] [place] TYPE: Emergency COMPLAINT: - CHEST PAIN DIAGNOSES: - Bee allergy status - Lesion of ulnar nerve, left upper limb - Allergy status to penicillin - Personal history of nicotine dependence - Other buttermaker helper (current) drug therapy 03/13/2021 21:33 [facility] [place] TYPE: Emergency COMPLAINT: - FLU SYMPTOMS DIAGNOSES: - Other specified symptoms and signs involving the circulatory and respiratory systems - Allergy status to penicillin - Bee allergy status - Cough - Personal history of nicotine dependence - Other buttermaker helper (current) drug therapy 03/12/2021 15:10 [facility] ANNE [...] visits to display in this time frame [email or web address]
== END 2021-09-01 13:20 | disposition home or self-care (01) ==
LOC: ED 12:25
DX: B34.9 Viral infection, unspecified (principal); Z20.822 Contact with and (suspected) exposure to COVID-19; Z87.891 Personal history of nicotine dependence; Z88.0 Allergy status to penicillin; Z91.030 Bee allergy status
CPT/HCPCS: 99283; C9803; U0003

== ENCOUNTER 2021-11-18 20:34 | Emergency (ER) | payer MEDICARE, OTHER ==
[~2021-11-18] VITALS: Ht 177.8 cm; Wt 70.0 kg
--- OUTSIDE RECORDS SUMMARY | 2021-11-18 20:42 | XMS ---
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 Events No recent Security Events currently on file CRITERIA MET - [facility] - Has Care Guidelines - 6 ED Visits in 6 Months CARE PROVIDERS YULY VILLEDA [facility] 03/12/2021-Current PHONE: [phone] [facility]Current MARIA TERESA [place] PHONE: [phone] LEW BAUGH Physician Beauty Specialist Current PHONE: Unknown Guidelines Source: [facility] Guidelines Date: 04/18/2021 Care Coordination: PATIENT DID NOT SHOW FOR PCP APPT 03/28/21.\T\nbsp; IS BEING DISCHARGED FROM [facility] HE HAS MULTIPLE NO-SHOWS.\T\nbsp; [facility]T\nbsp; HAS COUNSELOR.\T\nbsp; THEY WILL TRY TALKING WITH HIM AT NEXT APPT.\T\nbsp; PATIENT ALSO IS REFERRED TO [facility] FOR CASE MANAGEMENT TEAM.\T\ nbsp; Care History Medical/Surgical 08/22/2021 [facility] - CHW CALLED PATIENT-LEFT A VOICEMAIL. - [facility] REFERRAL TO [facility] WILL BE SENT AGAIN FOR FURTHER FOLLOW UP WITH PATIENT. 05/13/2021 [facility] - [facility] REFERRAL MADE TO [facility] CASE MANAGEMENT TO HELP PATIENT WITH MEDICAL FOLLOW P AND CLOSE FOLLOW UP WITH PCP. 04/10/2021 [facility] - PATIENT WAS SCHEDULED FOR FOLLOW UP APT WITH DR VILLEDA ON 03/28/21. PATIENT NO SHOWED TO APT. - PATIENT HAS A FOLLOW UP APT TODAY 04/10/21 @ 3:00PM WITH DR VILLEDA. - CHW TRIED CALL PATIENT- NO VM, CHW CALLED PATIENT MOM CONTACT NUMBER AND NO ANSWER. E.D. VISIT COUNT (12 MO.) 16 [facility]. TOTAL 16 NOTE: Visits indicate total known visits. ED/UCC VISIT TRACKING (12 MO.) 11/18/2021 20:35 [facility] [place] TYPE: Emergency COMPLAINT: - SKIN PROBLEM 09/01/2021 12:26 [facility] [place] TYPE: Emergency COMPLAINT: - SORE THROAT DIAGNOSES: - Acute pharyngitis, unspecified - Personal history of nicotine dependence - Viral infection, unspecified - Allergy status to penicillin - Bee allergy status 08/22/2021 00:46 [facility] [place] TYPE: Emergency COMPLAINT: - RIGHT ELBOW INJ DIAGNOSES: - Personal history of nicotine dependence - Other mcc (current) drug therapy - Bee allergy status [...] - Allergy status to penicillin - Other mcc (current) drug therapy - Epigastric pain - [...] dependence - Other mcc (current) drug therapy - Bee allergy status - Chronic periodontitis, localized, unspecified severity - Allergy status to penicillin 03/14/2021 23:14 [facility] [place] TYPE: Emergency COMPLAINT: - CHEST PAIN DIAGNOSES: - Bee allergy status - Lesion of ulnar nerve, left upper limb - Allergy status to penicillin - Personal history of nicotine dependence - Other mcc (current) drug therapy 03/13/2021 21:33 [facility] [place] TYPE: Emergency COMPLAINT: - FLU SYMPTOMS DIAGNOSES: - Other specified symptoms and signs involving the circulatory and respiratory systems - Allergy status to penicillin - Bee allergy status - Cough - Personal history of nicotine dependence - Other rn long term care (current) drug therapy 03/12/2021 15:10 [facility] [...] status to penicillin - Bee allergy status INPATIENT VISIT TRACKING (12 MO.) No inpatient visits to display in this time frame [email or web address]
[2021-11-18] MEDS ORDERED: SEROQUEL25 MG PO (20:51)
== END 2021-11-18 23:20 | disposition home or self-care (01) ==
LOC: ED 20:34
DX: S80.11XA Contusion of right lower leg, initial encounter (principal); Z91.030 Bee allergy status; Z88.0 Allergy status to penicillin; Z79.899 Other long term (current) drug therapy; Z87.891 Personal history of nicotine dependence; X58.XXXA Exposure to other specified factors, initial encounter
CPT/HCPCS: 73590; 93971; 99284-25

== ENCOUNTER 2021-12-28 18:01 | Emergency (ER) | payer MEDICARE, OTHER ==
[~2021-12-28] VITALS: Ht 177.8 cm; Wt 68.0 kg
[~2021-12-28 18:01] MED LIST changes: +SEROQUEL25 MG PO
--- OUTSIDE RECORDS SUMMARY | 2021-12-28 18:08 | XMS ---
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 Security Wireless Telegrapher Events No recent Security Events currently on file CRITERIA MET - 6 ED Visits in 6 Months - [facility] - Has Care Guidelines CARE PROVIDERS YULY VILLEDA [facility] 03/12/2021-Current PHONE: [phone] [facility]Eliseo Al[place]te PHONE: [phone] LEW BAUGH Physician Correctional Manager Current PHONE: Unknown Guidelines Source: [facility] Guidelines Date: 04/18/2021 Care Coordination: PATIENT DID NOT SHOW FOR PCP APPT 03/28/21.\T\nbsp; IS BEING DISCHARGED FROM [facility] HE HAS MULTIPLE NO-SHOWS.\T\nbsp; [facility]T\nbsp; HAS COUNSELOR.\T\nbsp; THEY WILL TRY TALKING WITH HIM AT NEXT APPT.\T\nbsp; PATIENT ALSO IS REFERRED TO [facility] FOR CASE MANAGEMENT TEAM.\T\ nbsp; Care History Medical/Surgical 08/22/2021 [facility] - CHW CALLED PATIENT-LEFT A VOICEMAIL. - [facility] REFERRAL TO [facility] WILL BE SENT AGAIN FOR FURTHER FOLLOW UP WITH PATIENT. 05/13/2021 [facility] - [facility] REFERRAL MADE TO [facility] CASE MANAGEMENT TO HELP PATIENT WITH [...] NO ANSWER. [facility] NOTE: Visits indicate total known visits. ED/UCC VISIT TRACKING (12 MO.) 12/28/2021 18:02 [facility] [place] TYPE: Emergency COMPLAINT: - EYE PROBLEM 11/18/2021 20:35 [facility] [place] TYPE: Emergency COMPLAINT: - SKIN PROBLEM DIAGNOSES: - Pain in right lower leg - Exposure to other specified factors, initial encounter - Localized swelling, mass and lump, unspecified - Bee allergy status - Allergy status to penicillin - Other termite helper (current) drug therapy - Contusion of right lower leg, initial encounter - Personal history of nicotine dependence 09/01/2021 12:26 [facility] [place] TYPE: Emergency COMPLAINT: - SORE THROAT DIAGNOSES: - Acute pharyngitis, unspecified - Personal history of nicotine dependence - Viral infection, unspecified - Allergy status to penicillin - Bee allergy status 08/22/2021 00:46 [facility] [place] TYPE: Emergency COMPLAINT: - RIGHT ELBOW INJ DIAGNOSES: - Personal history of nicotine dependence - Other termite helper (current) drug therapy - Bee allergy [...] - Allergy status to penicillin - Other group home (current) drug therapy - Epigastric pain - [...] Personal history of nicotine dependence - Other termite helper (current) drug therapy - Bee allergy status - Chronic periodontitis, localized, unspecified severity - Allergy status to penicillin 03/14/2021 23:14 [facility] [place] TYPE: Emergency COMPLAINT: - CHEST PAIN DIAGNOSES: - Bee allergy status - Lesion of ulnar nerve, left upper limb - Allergy status to penicillin - Personal history of nicotine dependence - Other group home (current) drug therapy 03/13/2021 21:33 [facility] [place] TYPE: Emergency COMPLAINT: - FLU SYMPTOMS DIAGNOSES: - Other specified symptoms and signs involving the circulatory and respiratory systems - Allergy status to penicillin - Bee allergy status - Cough - Personal history of nicotine dependence - Other group home (current) drug therapy 03/12/2021 15:10 [facility] [place] TYPE: Emergency COMPLAINT: - SOB, SPITTING UP BLOOD DIAGNOSES: - Acute tracheitis without obstruction - Bee allergy status - Personal history of nicotine dependence - Cough - Allergy status to penicillin 03/11/2021 21:47 [facility] [place] TYPE: Emergency COMPLAINT: - SHORTNESS OF BREATH DIAGNOSES: - Nicotine dependence, unspecified, uncomplicated - Allergy status to penicillin - Bee allergy status - Food in respiratory tract, part unspecified causing asphyxiation, initial encounter 03/04/2021 00:49 [facility] [place] TYPE: Emergency COMPLAINT: - [...] visits to display in this time frame [email or web address]
--- NOTE | 2021-12-29 07:39 | EKG ---
[facility] [address] [place] [address] Signed Normal sinus rhythm Normal ECG When compared with ECG of 16-AUG-2021 21:28, QRS axis shifted right ST elevation now present in Anterior leads Confirmed by TROY DIEGO MD ([id number]) on 12/29/2021 7:39:20 AM Electronically Signed By: TROY DIEGO MD 12/29/21 0739 PATIENT NAME: ALINARICHARD Electrocardiogram DATE OF : [birth year] PHYSICIAN: TROY DIEGO MD REPORT #: [id number] REPORT IS CONFIDENTIAL AND NOT TO BE RELEASED WITHOUT AUTHORIZATION
== END 2021-12-28 19:40 | disposition home or self-care (01) ==
LOC: ED 18:01
DX: G43.B0 Ophthalmoplegic migraine, not intractable (principal); Z87.891 Personal history of nicotine dependence; Z88.0 Allergy status to penicillin; Z91.030 Bee allergy status
CPT/HCPCS: 70450; 93005; 93010; 99284-25; A9270

== ENCOUNTER 2022-02-20 20:33 | Emergency (ER) | payer MEDICARE, OTHER ==
[~2022-02-20] VITALS: Ht 177.8 cm; Wt 68.0 kg
--- OUTSIDE RECORDS SUMMARY | 2022-02-20 20:40 | XMS ---
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 No recent Security Events currently on file CRITERIA MET - [facility] - Has Care Guidelines CARE PROVIDERS YULY VILLEDA [facility] 03/12/2021-Current PH[facility]: [phone] [facility]Current MARIA TERESA [employer] PHONE: [phone] LEW BAUGH Physician Watch Dial Stoner Current PHONE: Unknown Guidelines Source: [facility] Guidelines Date: 04/18/2021 Care Coordination: PATIENT DID NOT SHOW FOR PCP APPT 03/28/21.\T\nbsp; IS BEING DISCHARGED FROM [facility] HE HAS MULTIPLE NO-SHOWS.\T\nbsp; PATIENT IS [facility] [facility].\T\nbsp; HAS COUNSELOR.\T\nbsp; THEY WILL TRY TALKING WITH HIM AT NEXT APPT.\T\nbsp; PATIENT ALSO IS REFERRED TO [facility] FOR CASE MANAGEMENT TEAM.\T\ nbsp; Care History Medical/Surgical 08/22/2021 [facility] - CHW CALLED PATIENT-LEFT A VOICEMAIL. - [facility] REFERRAL TO [facility] WILL BE SENT AGAIN FOR FURTHER FOLLOW UP WITH PATIENT. 05/13/2021 [facility] - [facility] REFERRAL MADE TO [facility] CASE MANAGEMENT TO HELP PATIENT WITH MEDICAL FOLLOW P AND CLOSE FOLLOW UP WITH PCP. 04/10/2021 [facility] - PATIENT WAS SCHEDULED FOR FOLLOW UP APT WITH DR VILLEDA ON 03/28/21. PATIENT NO SHOWED TO APT. - PATIENT HAS A FOLLOW UP APT TODAY 04/10/21 @ 3:00PM WITH DR VILLEDA. - CHW TRIED CALL PATIENT- NO VM, CHW CALLED PATIENT MOM CONTACT NUMBER AND NO ANSWER. E.D. VISIT COUNT (12 MO.) 18 [facility] TOTAL 18 NOTE: Visits indicate total known visits. ED/C VISIT TRACKING (12 MO.) 02/20/2022 20:33 [facility] [place] TYPE: Emergency COMPLAINT: - LT HAND INJURY 12/28/2021 18:02 [facility] [place] TYPE: Emergency COMPLAINT: - EYE PROBLEM DIAGNOSES: - Bee allergy status - Ophthalmoplegic migraine, not intractable - Allergy status to penicillin - Headache, unspecified - Personal history of nicotine dependence 11/18/2021 20:35 [facility] [place] TYPE: Emergency COMPLAINT: - SKIN PROBLEM DIAGNOSES: - Pain in right lower leg - Exposure to other specified factors, initial encounter - Localized swelling, mass and lump, unspecified - Bee allergy status - Allergy status to penicillin - Other exterminator (current) drug therapy - Contusion of right [...] Personal history of nicotine dependence - Other residential (current) drug therapy - Bee allergy status [...] RT ARM BUG BITE 04/12/2021 22:23 [facility] [place] TYPE: Emergency COMPLAINT: - DIZZINESS DIAGNOSES: - Dizziness and giddiness - Headache, unspecified - Allergy status to penicillin - Other exterminator (current) drug therapy - Epigastric pain - Personal history of nicotine dependence - Rash and other nonspecific skin eruption - Bee allergy status 04/04/2021 10:38 [facility] [place] [facility] [place] TYPE: Emergency COMPLAINT: - WEAKNESS DIAGNOSES: - Dizziness and giddiness - Bee allergy status - Viral infection, unspecified - Allergy status to penicillin 03/16/2021 16:37 [facility] [place] [place] TYPE: Emergency COMPLAINT: - FEVER, DENTAL PAIN DIAGNOSES: - Other specified disorders of teeth and supporting structures - Dental caries, unspecified - Personal history of nicotine dependence - Other residential (current) drug therapy - Bee allergy status - Chronic periodontitis, localized, unspecified severity - Allergy status to penicillin 03/14/2021 23:14 [facility] [place] TYPE: Emergency COMPLAINT: - CHEST PAIN DIAGNOSES: - Bee allergy status - Lesion of ulnar nerve, left upper limb - Allergy status to penicillin - Personal history of nicotine dependence - Other residential (current) drug therapy 03/13/2021 21:33 [facility] [place] TYPE: Emergency COMPLAINT: - FLU SYMPTOMS DIAGNOSES: - Other specified symptoms and signs involving the circulatory and respiratory systems - Allergy status to penicillin - Bee allergy status - Cough - Personal history of nicotine dependence - Other residential (current) drug therapy 03/12/2021 15:10 [facility] [place] TYPE: Emergency COMPLAINT: - SOB, SPITTING UP BLOOD DIAGNOSES: - Acute tracheitis without obstruction - Bee allergy status - Personal history of nicotine dependence - Cough - Allergy status to penicillin 03/11/2021 21:[address] [facility] [place] TYPE: Emergency [...] visits to display in this time frame [email or web address]
[2022-02-20] MEDS ORDERED: NAPROSYN500 MG PO (21:28)
== END 2022-02-20 21:39 | disposition home or self-care (01) ==
LOC: ED 20:33
DX: S60.222A Contusion of left hand, initial encounter (principal); Z87.891 Personal history of nicotine dependence; Z91.030 Bee allergy status; Z88.0 Allergy status to penicillin; W18.30XA Fall on same level, unspecified, initial encounter; Y92.096 Garden or yard of other non-institutional residence as the place of occurrence of the external cause
CPT/HCPCS: 73130; 99283-25

== ENCOUNTER 2022-03-08 10:48 | Emergency (ER) | payer MEDICARE, OTHER ==
[~2022-03-08] VITALS: Ht 177.8 cm; Wt 68.0 kg
--- OUTSIDE RECORDS SUMMARY | 2022-03-08 11:26 | XMS ---
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 No recent Security Events currently on file CRITERIA MET - [facility] - Has Care Guidelines - [facility] - 2 Visits in 30 Days CARE PROVIDERS YULY VILLEDA [facility] 03/12/2021-Current PHONE: [phone] [facility]Current MARIA TERESA [place] PHONE: [phone] LEW BAUGH Physician Wool Brusher Current PHONE: Unknown Guidelines Source: [facility] Guidelines Date: 04/18/2021 Care Coordination: PATIENT DID NOT SHOW FOR PCP APPT 03/28/21.\T\nbsp; IS BE[facility] HE HAS MULTIPLE NO-SHOWS.\T\nbsp; PATIENT IS SEEN BY [facility].\T\nbsp; HAS COUNSELOR.\T\nbsp; THEY WILL TRY TALKING WITH HIM AT NEXT APPT.\T\nbsp; PATIENT ALSO IS [facility].\T\ nbsp; Care History Medical/Surgical 08/22/2021 [facility] - CHW CALLED PATIENT-LEFT A VOICEMAIL. - [facility] REFERRAL TO [facility] WILL BE SENT AGAIN FOR FURTHER FOLLOW UP WITH PATIENT. 05/13/2021 [facility] - [facility] REFERRAL MADE TO [facility] CASE MANAGEMENT TO HELP PATIENT WITH MEDICAL FOLLOW P AND CLOSE FOLLOW UP WITH PCP. 04/10/2021 [facility] - PATIENT WAS SCHEDULED FOR FOLLOW UP APT WITH DR VILLEDA ON 03/28/21. PATIENT NO SHOWED TO APT. - PATIENT HAS A FOLLOW UP APT TODAY 04/10/21 @ 3:00PM WITH DR VILLEDA. - CHW TRIED CALL PATIENT- NO VM, CHW CALLED PATIENT MOM CONTACT NUMBER AND NO ANSWER. E.D. VISIT COUNT (12 MO.) 18 [facility] TOTAL 18 NOTE: Visits indicate total known visits. ED/UCC VISIT TRACKING (12 MO.) 03/08/2022 10:49 [facility] [place] TYPE: Emergency COMPLAINT: - LEFT EAR, CAN HEAR OUT OF IT. 02/20/2022 20:33 [facility] [place] TYPE: Emergency COMPLAINT: - LT HAND INJURY DIAGNOSES: - Fall on same level, unspecified, initial encounter - Allergy status to penicillin - Contusion of left hand, initial encounter - Pain in left hand - Bee allergy status - Personal history of nicotine dependence - Garden or yard of other non-institutional residence as the place of occurrence of the external cause 12/28/2021 18:02 [facility] [place] TYPE: [...] - Allergy status to penicillin - Other fci (current) drug therapy - Contusion of right lower leg, initial encounter - Personal history of nicotine dependence 09/01/2021 12:26 [facility] [place] TYPE: Emergency COMPLAINT: - SORE THROAT DIAGNOSES: - Acute pharyngitis, unspecified - Personal history of nicotine dependence - Viral infection, unspecified - Allergy status to penicillin - Contact with and (suspected) exposure to COVID-19 - Bee allergy status 08/22/2021 00:46 [facility] [place] TYPE: Emergency COMPLAINT: - RIGHT ELBOW INJ DIAGNOSES: - Personal history of nicotine dependence - Other vermin exterminator (current) drug therapy - Bee allergy status [...] of nicotine dependence - COVID-19 05/17/2021 03:[address] [place] TYPE: Emergency COMPLAINT: - HEAD LACERATION 05/03/2021 22:[address] [facility] [place] TYPE: Emergency COMPLAINT: - RT ARM BUG BITE 04/12/2021 22:[address] [facility] [place] TYPE: Emergency COMPLAINT: - DIZZINESS DIAGNOSES: - Dizziness and giddiness - Headache, unspecified - Allergy status to penicillin - Other vermin exterminator (current) drug therapy - Epigastric pain - Personal history of nicotine dependence - Rash and other nonspecific skin eruption - Bee allergy status 04/04/2021 10:[address] [facility] [place] TYPE: Emergency COMPLAINT: - WEAKNESS DIAGNOSES: - Dizziness and giddiness - Bee allergy status - Viral infection, unspecified - Allergy status to penicillin 03/16/2021 16:37 [facility] [place] TYPE: Emergency COMPLAINT: - FEVER, DENTAL PAIN DIAGNOSES: - Other specified disorders of teeth and supporting structures - Dental caries, unspecified - Personal history of nicotine dependence - Other fci (current) drug therapy - Bee allergy status - Chronic periodontitis, localized, unspecified severity - Allergy status to penicillin 03/14/2021 23:14 [facility] [place] TYPE: Emergency COMPLAINT: - CHEST PAIN DIAGNOSES: - Bee allergy status - Lesion of ulnar nerve, left upper limb - Allergy status to penicillin - Personal history of nicotine dependence - Other fci (current) drug therapy 03/13/2021 21:33 [facility] [place] TYPE: Emergency COMPLAINT: - FLU SYMPTOMS DIAGNOSES: - Other specified symptoms and signs involving the circulatory and respiratory systems - Allergy status to penicillin - Bee allergy status - Cough - Personal history of nicotine dependence - Other vermin exterminator (current) drug therapy 03/12/2021 15:10 [facility] [place] TYPE: Emergency COMPLAINT: - SOB, SPITTING UP BLOOD DIAGNOSES: - Acute tracheitis without obstruction - Bee allergy status - Personal history of nicotine dependence - Cough - Allergy status to penicillin 03/11/2021 21:[address] [facility] [place] TYPE: Emergency COMPLAINT: - SHORTNESS OF BREATH DIAGNOSES: - Nicotine dependence, unspecified, uncomplicated - Allergy status to penicillin - Bee allergy status - Food in respiratory tract, part unspecified causing asphyxiation, initial encounter INPATIENT VISIT TRACKING (12 MO.) No inpatient visits to display in this time frame [email or web address]
== END 2022-03-08 11:48 | disposition home or self-care (01) ==
LOC: ED 10:48
DX: S09.91XA Unspecified injury of ear, initial encounter (principal); Z87.891 Personal history of nicotine dependence; Z91.030 Bee allergy status; Z88.0 Allergy status to penicillin; X58.XXXA Exposure to other specified factors, initial encounter
CPT/HCPCS: 99282

== ENCOUNTER 2023-01-04 11:19 | Emergency (ER) | payer MEDICARE, OTHER ==
[~2023-01-04] VITALS: Ht 177.8 cm; Wt 74.1 kg
[2023-01-04 12:29] VITALS: BP 135/75
== END 2023-01-04 12:29 | disposition home or self-care (01) ==
LOC: ED 11:19
DX: R20.9 Unspecified disturbances of skin sensation (principal); Z87.891 Personal history of nicotine dependence; Z88.0 Allergy status to penicillin; Z91.030 Bee allergy status
CPT/HCPCS: 36415; 70450; 80053; 81001; 83735; 85025

== ENCOUNTER 2023-03-25 20:18 | Emergency (ER) | payer MEDICARE, OTHER ==
[~2023-03-25] VITALS: Ht 177.8 cm; Wt 73.2 kg
--- OUTSIDE RECORDS SUMMARY | ~2023-03-25 | XMS | Continuity of Care Document ---
Demographics + + + | Address | [address] | | | [place] [address] | + + + | Preferred Language | Unknown | + + + | Marital Status | Never | + + + | Taoist Affiliation | Unknown | + + + | Race | White | + + + | Ethnic Group | Unknown | + + + Author + + + | Author | Fork | + + + | Organization | Fork | + + + | Address | [address] | | | [place] [address] | + + + | Phone | | + + + Care Team Providers + + + + | Care Desktop Support Associate Name | Role | Phone | + + + + Unavailable | Unavailable | + + + + Allergies No information. Encounters No information. Functional Status No information. Immunizations No information. Medications No information. Problems + + + + | date | description | facility | + + + + | 2022-02-20 20:33 | Pain in left hand | [facility] | | | [facility] | + + + + | 2022-02-20 20:33 | Contusion of left hand, | [facility] | | | initial encounter | [facility] | + + + + | 2022-02-20 20:33 | Fall on same level, | [facility] | | | unspecified, initial | [facility] | | | encounter | | + + + + | 2022-02-20 20:33 | Garden or yard of other | [facility] | | | non-institutional residence | [facility] | | | as the place of occurrence | | | | of the external cause | | + + + + | 2022-02-20 20:33 | Personal history of | [facility] | | | nicotine dependence | [facility] | + + + + | 2022-02-20 20:33 | Allergy status to | [facility] | | | penicillin | [facility] | + + + + | 2022-02-20 20:33 | Bee allergy status | [facility] | | | | [facility] | + + + + | 2022-03-08 10:49 | Unspecified injury of ear, | [facility] | | | initial encounter | [facility] | + + + + | 2022-03-08 10:49 | Exposure to other | [facility] | | | specified factors, initial | [facility] | | | encounter | | + + + + | 2022-03-08 10:49 | Personal history of | [facility] | | | nicotine dependence | [facility] | + + + + | 2022-03-08 10:49 | Allergy status to | [facility] | | | penicillin | [facility] | + + + + | 2022-03-08 10:49 | Bee allergy status | [facility] | | | | [facility] | + + + + Procedures No information. Results/Labs No information. Social History No information. Vital Signs No information."
--- OUTSIDE RECORDS SUMMARY | ~2023-03-25 | XMS | Continuity of Care Document ---
Demographics + + + | Address | [address] | | | [place] [address] | + + + | Preferred Language | Unknown | + + + | Marital Status | Never | + + + | Alevism Affiliation | Unknown | + + + | Race | White | + + + | Ethnic Group | Unknown | + + + Author + + + | Author | [facility] | + + + | Organization | [facility] | + + + | Address | [address] | | | [place] [address] | + + + | Phone | | + + + Care Team Providers + + + + | Care Program Advocate Name | Role | Phone | + [...]
[2023-03-25] MEDS ORDERED: DOXYCYCLINE HY100 MG PO (20:49)
[2023-03-25 21:06] VITALS: BP 112/69
== END 2023-03-25 21:06 | disposition home or self-care (01) ==
LOC: ED 20:18
DX: L02.11 Cutaneous abscess of neck (principal); Z87.891 Personal history of nicotine dependence; Z91.030 Bee allergy status; Z88.0 Allergy status to penicillin; Z88.8 Allergy status to other drugs, medicaments and biological substances
CPT/HCPCS: 99283

== ENCOUNTER 2023-07-08 19:39 | Emergency (ER) | payer MEDICARE, OTHER ==
[~2023-07-08] VITALS: Ht 177.8 cm; Wt 71.8 kg
[~2023-07-08 19:39] MED LIST changes: +DOXYCYCLINE HY100 MG PO
[2023-07-08 21:42] VITALS: BP 112/77
== END 2023-07-08 21:40 | disposition home or self-care (01) ==
LOC: ED 19:39
DX: F43.20 Adjustment disorder, unspecified (principal); W18.30XA Fall on same level, unspecified, initial encounter; Z87.891 Personal history of nicotine dependence; Z91.030 Bee allergy status; Z88.2 Allergy status to sulfonamides; Z88.1 Allergy status to other antibiotic agents; Z88.0 Allergy status to penicillin
CPT/HCPCS: 73560; 80053; 80307; 84443; 85025; 99283-25; G0480

== ENCOUNTER 2024-05-04 23:38 | Emergency (ER) | payer MEDICARE, OTHER ==
[~2024-05-04] VITALS: Ht 177.8 cm; Wt 71.7 kg
[2024-05-05] MEDS ORDERED: ondansetron HCL 4 MG/2 ML VIAL IV ONE (00:15)
[2024-05-05] MEDS ORDERED: FAMOTIDINE 20 MG/ 2 ML VIAL IV ONE (00:15)
[2024-05-05 00:26] LABS: BASOPHILS 0.3 % (0-2); EOSINOPHILS 0.7 % (0-6); HEMATOCRIT 43.8 % (35.0-50.0); HEMOGLOBIN 15.2 g/dL (12.0-18.0); LYMPHOCYTES 13.8 % (24-44); MCH 32.2 (27-36); MCHC 34.6 g/dl (30-36); MONOCYTES 4.5 % (0-12); NEUTROPHILS 80.7 % (39-80); PLATELET COUNT 134 K/uL (140-440); RDW 13.1 (10.5-15.0)
[2024-05-05 00:50] LABS: ALBUMIN 4.5 g/dL (3.4-5.0); ALBUMIN/GLOBULIN RATIO 1.55 (1.1-2.4); ANION GAP 16.3 (7-21); BILIRUBIN, TOTAL 0.5 ng/dL (0.2-1.0); BUN/CREATININE RATIO 10.58 (6.0-28.6); CALCIUM 8.6 mg/dL (8.5-10.1); CREATININE, SERUM 0.85 mg/dL (0.70-1.30); POTASSIUM 3.3 mmol/L (3.5-5.1); PROTEIN, TOTAL 7.4 g/dL (6.4-8.2)
[2024-05-05 00:54] LABS: ACETAMINOPHEN 0 ug/mL (10-30); SALICYLATE 0.8 mg/dL (2.8-20.0); TSH, 3RD GENERATION 0.756 uIU/mL (0.358-3.740)
[2024-05-05] MEDS ORDERED: LACTATED RINGER'S 1,000 ML IV ONE ×3 (02:00→23:45)
[2024-05-05 02:18] LABS: BILIRUBIN, URINE NEGATIVE (negative); BLOOD/HGB, URINE NEGATIVE (Negative); KETONE, URINE TRACE (Negative); LEUK ESTERASE, URINE NEGATIVE (negative); NITRITE, URINE NEGATIVE (negative)
[2024-05-05 02:33] LABS: AMPHETAMINES, URINE NEGATIVE (NEGATIVE); BARBITURATES, URINE NEGATIVE (NEGATIVE); BENZODIAZEPINE, URINE NEGATIVE (NEGATIVE); BUPRENORPHINE, URINE NEGATIVE (NEGATIVE); CANNABINOID, URINE NEGATIVE (NEGATIVE); COCAINE, URINE NEGATIVE (NEGATIVE); ECSTASY, URINE NEGATIVE (NEGATIVE); FENTANYL, URINE NEGATIVE (NEGATIVE); METHADONE, URINE NEGATIVE (NEGATIVE); OPIATES, URINE NEGATIVE (NEGATIVE); OXYCODONE, URINE NEGATIVE (NEGATIVE); PHENCYCLIDINE, URINE NEGATIVE (NEGATIVE)
[2024-05-05 03:32] VITALS: BP 102/80
== END 2024-05-05 03:30 | disposition home or self-care (01) ==
LOC: ED 23:38
PROVIDERS: Internal Medicine
DX: F10.129 Alcohol abuse with intoxication, unspecified (principal); Z91.030 Bee allergy status; Z88.0 Allergy status to penicillin; Z88.1 Allergy status to other antibiotic agents; Z87.891 Personal history of nicotine dependence
CPT/HCPCS: 36415; 70450; 80053; 80307; 81003; 83690; 83735; 84443; 85025; 96361; 96374; 96375; 99285-25; G0480; J2405; J7121

== ENCOUNTER 2024-06-30 17:41 | Emergency (ER) | payer MEDICARE, OTHER ==
[~2024-06-30] VITALS: Ht 177.8 cm; Wt 74.0 kg
[2024-06-30] MEDS ORDERED: IBUPROFEN 600 MG TAB PO ONE (18:00)
[2024-06-30] MEDS ORDERED: HYDROCODONE/ACETA 7.5/325 TAB PO ONE (18:00)
[2024-06-30] MEDS ORDERED: HYDROCODON-ACE1 EA11 PO (18:54)
[2024-06-30 18:58] VITALS: BP 140/74
[2024-06-30] MEDS ORDERED: BACITRAYCIN PLU28 GM TOP (23:32)
== END 2024-06-30 18:58 | disposition home or self-care (01) ==
LOC: ED 17:41
DX: T21.12XA Burn of first degree of abdominal wall, initial encounter (principal); Z87.891 Personal history of nicotine dependence; Z88.2 Allergy status to sulfonamides; Z88.0 Allergy status to penicillin; Z88.8 Allergy status to other drugs, medicaments and biological substances; Z91.030 Bee allergy status; X10.0XXA Contact with hot drinks, initial encounter
CPT/HCPCS: 99283; A9270

== ENCOUNTER 2024-06-30 23:14 | Emergency (ER) | payer MEDICARE, OTHER ==
[~2024-06-30] VITALS: Ht 177.8 cm; Wt 74.4 kg
[~2024-06-30 23:14] MED LIST changes: +HYDROCODON-ACE1 EA11 PO
[2024-06-30] MEDS ORDERED: BACITRACIN 0.9 GM 1 PKT PKT TOP ONE (23:30)
[2024-06-30] MEDS ORDERED: BACITRAYCIN PLU28 GM TOP (23:32)
[2024-06-30 23:38] VITALS: BP 127/80
== END 2024-06-30 23:38 | disposition home or self-care (01) ==
LOC: ED 23:14
DX: T24.212A Burn of second degree of left thigh, initial encounter (principal); Z87.891 Personal history of nicotine dependence; Z91.038 Other insect allergy status; Z88.2 Allergy status to sulfonamides; Z88.1 Allergy status to other antibiotic agents; Z88.0 Allergy status to penicillin; X08.8XXA Exposure to other specified smoke, fire and flames, initial encounter
CPT/HCPCS: 99283